=== PATIENT | male | born 1970 | race Native Hawaiian/Other Pacific Islander ===

== ENCOUNTER 2022-02-16 09:58 | Inpatient (IN) | payer OTHER ==
--- NOTE | 2022-02-16 10:06 | ED ---
General Adult HPI - General Stated complaint: Overdose Time Seen by Provider: 02/16/22 10:02 Source: patient, EMS, RN notes reviewed Mode of arrival: EMS Limitations: physical limitation (hard of hearing) - History of Present Illness Initial comments: Patient is a pleasant 22-year-old male presenting to the emergency Department with possible overdose. Patient was found unresponsive. When EMS arrived patient was arousable to painful stimuli only. Patient significantly improved with 2 of nasal Narcan. Patient started to become drowsy and improved again with 0.5 of IV Arkan. Patient admits to using marijuana and crack cocaine. Patient is very hard of hearing and somewhat a poor historian. Patient is unclear where he has and what happened. Patient has no complaints otherwise. - Related Data Allergies Allergy/AdvReac Type Severity Reaction Status Date / Time No Known Allergies Allergy Verified 02/16/22 10:07 Review of Systems ROS Statement: Those systems with pertinent positive or pertinent negative responses have been documented in the HPI. ROS Other: All systems not noted in ROS Statement are negative. Constitutional: Denies: fever Eyes: Denies: eye pain ENT: Denies: ear pain Respiratory: Denies: cough Cardiovascular: Denies: chest pain Endocrine: Denies: fatigue Gastrointestinal: Denies: abdominal pain Genitourinary: Denies: dysuria Musculoskeletal: Denies: back pain Skin: Denies: rash Neurological: Reports: as per HPI General Exam General appearance: alert, in no apparent distress Head exam: Present: atraumatic, normocephalic Eye exam: Present: normal appearance, PERRL, EOMI ENT exam: Present: normal oropharynx Neck exam: Present: normal inspection. Absent: tenderness, meningismus Respiratory exam: Present: normal lung sounds bilaterally Cardiovascular Exam: Present: regular rate, normal rhythm GI/Abdominal exam: Present: soft. Absent: tenderness Extremities exam: Present: normal inspection Neurological exam: Present: alert, CN II-XII intact. Absent: motor sensory deficit Expanded Patient oriented to: Present: person. Absent: place Psychiatric exam: Present: flat affect Skin exam: Present: normal color Course Vital Signs 02/16/22 02/16/22 02/16/22 10:08 10:14 10:53 Temperature 98 F Pulse Rate 107 H Respiratory 10 L 10 L 10 L Rate Blood Pressure 122/79 O2 Sat by Pulse 97 Oximetry EKG Findings - EKG Comments: EKG Findings:: Sinus tachycardia 110. NC 158. QRS 1:30. QT 355. QTC 420. Normal axis. Moderate intraventricular conduction delay. No acute ST change. Medical Decision Making - Medical Decision Making Patient reevaluated and resting comfortably in bed. Patient was getting drowsy again and improving with Narcan drip. Family also states no history of any heroin or opiate use. Case was discussed with practitioner John, who will admit covering hospital call. She does have mild bump with troponin. Cardiology consult and BNP will be ordered. Patient will be covered with a ntibiotics pending this with concern for questionable aspiration. - Lab Data Result diagrams: 02/16/22 10:07 02/16/22 10:07 Lab Results 02/16/22 02/16/22 02/16/22 Range/Units 10:07 10:07 10:07 WBC 15.5 H (3.8-10.6) k/uL RBC 5.21 (4.30-5.90) m/uL Hgb 17.0 (13.0-17.5) gm/dL Hct 52.0 (39.0-53.0) % MCV 99.8 (80.0-100.0) fL MCH 32.7 (25.0-35.0) pg MCHC 32.8 (31.0-37.0) g/dL RDW 13.3 (11.5-15.5) % Plt Count 260 (150-450) k/uL MPV 7.3 Neutrophils % 91 % Lymphocytes % 3 % Monocytes % 5 % Eosinophils % 0 % Basophils % 1 % Neutrophils # 14.1 H (1.3-7.7) k/uL Lymphocytes # 0.5 L (1.0-4.8) k/uL Monocytes # 0.8 (0-1.0) k/uL Eosinophils # 0.0 (0-0.7) k/uL Basophils # 0.2 (0-0.2) k/uL PT 10.5 (9.0-12.0) sec INR 1.0 (<1.2) APTT 25.6 (22.0-30.0) sec Sodium 142 (137-145) mmol/L Potassium 6.2 H* (3.5-5.1) mmol/L Chloride 104 (98-107) mmol/L Carbon Dioxide 21 L (22-30) mmol/L Anion Gap 17 mmol/L BUN 20 (9-20) mg/dL Creatinine 2.13 H (0.66-1.25) mg/dL Est GFR (CKD-EPI)AfAm 40 (>60 ml/min/1.73 sqM) Est GFR (CKD-EPI)NonAf 35 (>60 ml/min/1.73 sqM) Glucose 109 H (74-99) mg/dL Calcium 8.6 (8.4-10.2) mg/dL Total Bilirubin 0.4 (0.2-1.3) mg/dL AST 58 (17-59) U/L ALT 59 H (4-49) U/L Alkaline Phosphatase 98 (38-126) U/L Troponin I (0.000-0.034) ng/mL Total Protein 7.8 (6.3-8.2) g/dL Albumin 4.8 (3.5-5.0) g/dL Serum Alcohol <10 mg/dL 02/16/22 Range/Units 10:07 WBC (3.8-10.6) k/uL RBC (4.30-5.90) m/uL Hgb (13.0-17.5) gm/dL Hct (39.0-53.0) % MCV (80.0-100.0) fL MCH (25.0-35.0) pg MCHC (31.0-37.0) g/dL RDW (11.5-15.5) % Plt Count (150-450) k/uL MPV Neutrophils % % Lymphocytes % % Monocytes % % Eosinophils % % Basophils % % Neutrophils # (1.3-7.7) k/uL Lymphocytes # (1.0-4.8) k/uL Monocytes # (0-1.0) k/uL Eosinophils # (0-0.7) k/uL Basophils # (0-0.2) k/uL PT (9.0-12.0) sec INR (<1.2) APTT (22.0-30.0) sec Sodium (137-145) mmol/L Potassium (3.5-5.1) mmol/L Chloride (98-107) mmol/L Carbon Dioxide (22-30) mmol/L Anion Gap mmol/L BUN (9-20) mg/dL Creatinine (0.66-1.25) mg/dL Est GFR (CKD-EPI)AfAm (>60 ml/min/1.73 sqM) Est GFR (CKD-EPI)NonAf (>60 ml/min/1.73 sqM) Glucose (74-99) mg/dL Calcium (8.4-10.2) mg/dL Total Bilirubin (0.2-1.3) mg/dL AST (17-59) U/L ALT (4-49) U/L Alkaline Phosphatase (38-126) U/L Troponin I 0.191 H* (0.000-0.034) ng/mL Total Protein (6.3-8.2) g/dL Albumin (3.5-5.0) g/dL Serum Alcohol mg/dL - Radiology Data Radiology results: report reviewed (Head CT shows no acute), image reviewed (Chest x-ray does show some interstitial changes, possibly edema versus infiltrate) Critical Care Time Critical Care Time: Yes Total Critical Care Time: 32 Disposition Clinical Impression: Accidental drug overdose, Dyspnea, Hyperkalemia Disposition: ADMITTED IP TO THIS HOSP Condition: Serious Is patient prescribed a controlled substance at d/c from ED?: No Referrals: None,Stated [Primary Care Provider] - 1-2 days Time of Disposition: 11:38
[2022-02-16] MEDS ORDERED: NALOXONE 0.4 MG/ML 1 ML VIAL IVP STA (10:07)
[2022-02-16 10:35] LABS: Basophils # (A) 0.2 k/uL (0-0.2); Basophils % (A) 1 %; Eosinophils % (A) 0 %; Lymphocytes # (A) 0.5 k/uL (1.0-4.8); Lymphocytes % (A) 3 %; MCH 32.7 pg (25.0-35.0); MCHC 32.8 g/dL (31.0-37.0); MCV 99.8 fL (80.0-100.0); Mean Platelet Volume 7.3; Monocytes # (A) 0.8 k/uL (0-1.0); Monocytes % (A) 5 %; Neutrophils # (A) 14.1 k/uL (1.3-7.7); Neutrophils % (A) 91 %; Platelet Count 260 k/uL (150-450); RBC 5.21 m/uL (4.30-5.90); RDW 13.3 % (11.5-15.5); WBC 15.5 k/uL (3.8-10.6)
[2022-02-16 10:41] LABS: ALT 59 U/L (4-49); AST 58 U/L (17-59); African American GFR (CKD) 40 (>60 ml/min/1.73 sqM); Albumin 4.8 g/dL (3.5-5.0); Alcohol <10 mg/dL; Alkaline Phosphatase 98 U/L (38-126); Anion Gap 17 mmol/L; Blood Urea Nitrogen 20 mg/dL (9-20); Calcium 8.6 mg/dL (8.4-10.2); Carbon Dioxide 21 mmol/L (22-30); Chloride 104 mmol/L (98-107); Glucose 109 mg/dL (74-99); Non-African American GFR(CKD) 35 (>60 ml/min/1.73 sqM); Sodium 142 mmol/L (137-145); Total Bilirubin 0.4 mg/dL (0.2-1.3); Total Protein 7.8 g/dL (6.3-8.2)
[2022-02-16 10:46] LABS: Partial Thromboplastin Time 25.6 sec (22.0-30.0); Prothrombin Time 10.5 sec (9.0-12.0)
[2022-02-16] MEDS: NALOXONE (MDV) 2 MG in SODIUM CHLORIDE 0.9% 250 ML IV SCH ×3 (10:53→18:43)
[2022-02-16 11:03] LABS: Potassium 6.2 mmol/L (3.5-5.1)
[2022-02-16] MEDS ORDERED: SODIUM CHLORIDE 0.9% 1,000 ML IV STA (11:19)
[2022-02-16] MEDS ORDERED: SODIUM CHLORIDE 0.9% 500 ML 500 ML IV STA (11:19)
[2022-02-16] MEDS ORDERED: SODIUM BICARB 8.4% 50 ML SYR (1 MEQ/ML) IV ONE (11:20)
[2022-02-16] MEDS ORDERED: CALCIUM GLUCONATE IN NACL 1 GM in SALINE 1 100ML.BAG IVPB ONE (11:20)
--- NOTE | 2022-02-16 11:24 | XR ---
EXAMINATION TYPE: XR chest 2V DATE OF EXAM: 02/16/2022 COMPARISON: NONE HISTORY: Unresponsive after drug overdose. TECHNIQUE: Frontal and lateral views of the chest are obtained. FINDINGS: There are increased opacities bilaterally greater throughout the left lung. No pleural ef fusion or pneumothorax is seen bilaterally. The cardiac silhouette size is upper limits of normal. So mewhat low lung volumes. The osseous structures are intact. IMPRESSION: Left greater than right multifocal edema and/or infiltrates.
--- NOTE | 2022-02-16 11:25 | CT ---
EXAMINATION TYPE: CT brain wo con DATE OF EXAM: 02/16/2022 HISTORY: Altered mental status CT DLP: 1099.4 mGycm. Automated Exposure Control for Dose Reduction was Utilized. TECHNIQUE: CT scan of the head is performed without contrast. COMPARISON: None. FINDINGS: There is no acute intracranial hemorrhage or midline shift identified. Ventricles and sul ci within normal limits in size. Campos-white matter differentiation is maintained. The globes are int act and the visualized sinuses are clear. IMPRESSION: No acute intracranial hemorrhage or midline shift.
[2022-02-16] MEDS ORDERED: IPRATROPIUM-ALBUTEROL 3 ML NEB INHALATION PRN (11:40)
[2022-02-16] MEDS ORDERED: NALOXONE 0.4 MG/ML 1 ML VIAL IV PRN (11:40)
[2022-02-16] MEDS ORDERED: ASPIRIN 81 MG PO STA (11:44)
[2022-02-16] MEDS: PIPERACILLIN-TAZOBACTAM 3.375 GM in SODIUM CHLORIDE 0.9% 100 ML IVPB SCH ×2 (12:47→20:21)
--- NOTE | 2022-02-16 13:16 | P.CNPUL ---
History of Present Illness Consult date: 02/16/22 Requesting physician: Varghese Jacome Reason for consult: dyspnea, hypoxemia, pneumonia, abnormal CXR/CT, other Chief complaint: Suspected aspiration, overdose History of present illness: 52-year-old male with previous history of drug abuse including cocaine, crack, had a relapse, and was found unresponsive at her friend's house this morning. Patient's sister at the bedside also stated that CPR was also performed, but it is unknown for how long, and the details. When the EMS arrived patient was given Narcan with good response, and patient Required 3 doses. He was brought into the emergency department and started on Narcan drip is 0.6 milligram per hour. Patient is currently on a nonrebreather mask, satting 94%. He had been vomiting. Chest x-ray showing increased opacities bilaterally greater throughout the left lung, there is suspicion for aspiration related pneumonia or pulmonary edema. Brain CT showed no acute intracranial hemorrhage. Lab work showed elevated white count of 15.5, hemoglobin of 17, potassium of 6.2, BUN of 20 creatinine 2.13, troponin of 0.191, proBNP of 236, serum alcohol was less than 10. Patient is awake and alert, he is hard of hearing, but he is oriented 3, answering questions appropriately. He admits to doing cocaine and crack last night for the first time in the last 5 months, he states he has been quite stressed at work, he works at a [employer] in [place], [place]. In addition he also smokes cigarettes and marijuana on a regular basis. He remains on Narcan infusion, he is awaiting a bed in the ICU Review of Systems All systems: negative Constitutional: Denies chills, Denies fever Eyes: denies blurred vision, denies pain Ears, nose, mouth and throat: Denies headache, Denies sore throat Cardiovascular: Denies chest pain, Denies shortness of breath Respiratory: Reports dyspnea, Denies cough Gastrointestinal: Denies abdominal pain, Denies diarrhea, Denies nausea, Denies vomiting Musculoskeletal: Denies myalgias Integumentary: Denies pruritus, Denies rash Neurological: Reports change in mentation, Denies numbness, Denies weakness Psychiatric: Denies anxiety, Denies depression Endocrine: Denies fatigue, Denies weight change Past Medical History Past Medical History: Unable to Obtain History of Any Multi-Drug Resistant Organisms: Unobtainable Past Surgical History: Unable to Obtain Past Psychological History: No Psychological Hx Reported Past Drug Use History: Marijuana Medications and Allergies Home Medications Medication Instructions Recorded Confirmed Type No Known Home Medications 02/16/22 02/16/22 History Allergies Allergy/AdvReac Type Severity Reaction Status Date / Time No Known Allergies Allergy Verified 02/16/22 12:13 Physical Exam Vitals: Vital Signs Temp Pulse Resp BP Pulse Ox 02/16/22 12:40 96 23 124/90 94 L 02/16/22 12:30 96 26 H 92 L 02/16/22 12:20 94 26 H 89 L 02/16/22 12:10 93 16 90 L 02/16/22 12:00 94 19 90 L 02/16/22 11:59 93 19 88 L 02/16/22 10:53 10 L 02/16/22 10:14 10 L 02/16/22 10:08 98 F 107 H 10 L 122/79 97 Intake and Output 02/15/22 02/16/22 02/16/22 22:59 06:59 14:59 Other: Weight 81.647 kg GENERAL EXAM: Alert, very pleasant, 52-year-old male, on nonrebreather mask, oriented 3, comfortable in no apparent distress. HEAD: Normocephalic/atraumatic. EYES: Normal reaction of pupils, equal size. Conjunctiva pink, sclera white. NOSE: Clear with pink turbinates. THROAT: No erythema or exudates. NECK: No masses, no JVD, no thyroid enlargement, no adenopathy. CHEST: No chest wall deformity. Symmetrical expansion. LUNGS: Equal air entry with diffuse crackles CVS: Regular rate and rhythm, normal S1 and S2, no gallops, no murmurs, no rubs ABDOMEN: Soft, nontender. No hepatosplenomegaly, normal bowel sounds, no guarding or rigidity. EXTREMITIES: No clubbing, no edema, no cyanosis, 2+ pulses and upper and lower extremities. MUSCULOSKELETAL: Muscle strength and tone normal. SPINE: No scoliosis or deformity SKIN: No rashes CENTRAL NERVOUS SYSTEM: Alert and oriented -3. No focal deficits, tone is normal in all 4 extremities. PSYCHIATRIC: Alert and oriented -3. Appropriate affect. Intact judgment and insight. Results - Laboratory Findings CBC and BMP: 02/16/22 10:07 02/16/22 10:07 PT/INR, D-dimer PT 10.5 sec (9.0-12.0) 02/16/22 10:07 INR 1.0 (<1.2) 02/16/22 10:07 Abnormal lab findings: Abnormal Labs 02/16/22 02/16/22 02/16/22 10:07 10:07 10:07 WBC 15.5 H Neutrophils # 14.1 H Lymphocytes # 0.5 L Potassium 6.2 H* Carbon Dioxide 21 L Creatinine 2.13 H Glucose 109 H ALT 59 H Troponin I 0.191 H* - Diagnostic Findings Chest x-ray: report reviewed, image reviewed Additional studies: CT of the brain review, EKG reviewed Assessment and Plan Plan: Assessment: #1. Acute hypoxic respiratory failure related to a suspected aspiration. There may be a component of pulmonary edema #2. Drug overdose, patient admits to taking cocaine and crack, responded to Narcan, currently remains on Narcan infusion #3. Acute kidney injury #4. Acute hyperkalemia related to acute kidney injury, serum potassium of 6.2, treated with calcium gluconate, sodium bicarb, repeat BMP is pending #5. Troponin leak, rule out possibility of non-ST elevated AK #6. History of drug abuse including cocaine, crack, marijuana #7. Tobacco dependence Plan: Continue Narcan infusion Continue antibiotics Echocardiogram suggesting possibility of decreased LV function, final report is pending We will decrease the IV fluids to 75 ML per hour Serum potassium follow-up pending Maintain aspiration precautions GI and DVT prophylaxis Drug screen, pro-calcitonin, and serial troponins are pending We'll follow patient's clinical course in the ICU I have personally seen and examined the patient, performed the documentation and the assessment and plan as written. Number of minutes spent on the visit: [15] Time with Patient: Greater than 30
[2022-02-16 13:25] LABS: Amorphous Sediment,Urine Few /hpf; Appearance,Urine Cloudy (Clear); Bilirubin,Urine Negative (Negative); Blood,Urine Small (Negative); Color,Urine Yellow; Glucose,Urine (UA) 1+ (Negative); Hyaline Casts,Urine 25 /lpf (0-2); Ketones,Urine Negative (Negative); Leukocyte Esterase,Urine Negative (Negative); Mucus,Urine Few /hpf; Nitrite,Urine Negative (Negative); Protein,Urine 1+ (Negative); RBC,Urine 1 /hpf (0-5); Specific Gravity,Urine 1.012 (1.001-1.035); Squamous Epithelial Cell,Urine 2 /hpf (0-4); Urobilinogen,Urine <2.0 mg/dL (<2.0); WBC,Urine 7 /hpf (0-5)
[2022-02-16 13:28] LABS: Amphetamine Screen,Urine Not Detected (NotDetected); Barbiturate Screen,Urine Not Detected (NotDetected); Benzodiazepines Screen,Urine Not Detected (NotDetected); Cocaine Screen,Urine Detected (NotDetected); Methadone Screen, Urine Not Detected (NotDetected); Opiate Screen,Urine Not Detected (NotDetected); Oxycodone Screen, Urine Not Detected (NotDetected); Phencyclidine Screen,Urine Not Detected (NotDetected); Tricyclic Antidepressant,Urine Not Detected (NotDetected); Urn Cannabinoid Scrn Detected (NotDetected)
[2022-02-16 13:51] LABS: Glucose,Whole Blood 101 mg/dL (70-110)
[2022-02-16] MEDS ORDERED: HEPARIN SODIUM 1,000 UN/ML (10ML VL) IV ONE (15:13)
[2022-02-16] MEDS ORDERED: HEPARIN SODIUM 1,000 UN/ML (10ML VL) IV PRN (15:13)
--- NOTE | 2022-02-16 16:03 | P.HPIM ---
History of Present Illness H&P Date: 02/16/22 Chief Complaint: unresponsiveness 52-year-old male with previous history of drug abuse including cocaine, but otherwise no past medical history, doesn't usually go to doctors. He presented to the ER after he was found unresponsive at a friend's house this morning. Patient's sister at the bedside also stated that CPR was also performed, but it is unknown for how long, and the details. When the EMS arrived patient was given Narcan with good response, and patient Required 3 doses. He was brought into the emergency department and started on Narcan drip. Patient is currently awake and answering questions appropriately but having problems with his hearing which is new according to sister. He told me that the last time he used cocaine was 5 months ago and that he doesn't use it regularly. He threw up multiple times in the ER. Work up in the ER with chest x-ray showed increased opacities bilaterally greater throughout the left lung, there is suspicion for aspiration related pneumonia or pulmonary edema. Brain CT showed no acute intracranial hemorrhage. Lab work showed elevated white count of 15.5, hemoglobin of 17, potassium of 6.2, BUN of 20 creatinine 2.13, troponin of 0.191, repeat 0.312, proBNP of 236, serum alcohol was less than 10. Urine drug screen positive for cocaine and marijuana. He is currently on narcan gtt will be admitted to ICU. Review of Systems Complete review of system performed, pertinent positives per HPI, otherwise negative Past Medical History Past Medical History: Unable to Obtain History of Any Multi-Drug Resistant Organisms: Unobtainable Past Surgical History: Unable to Obtain Past Psychological History: No Psychological Hx Reported Past Drug Use History: Marijuana Medications and Allergies Home Medications Medication Instructions Recorded Confirmed Type No Known Home Medications 02/16/22 02/16/22 History Allergies Allergy/AdvReac Type Severity Reaction Status Date / Time No Known Allergies Allergy Verified 02/16/22 12:13 Physical Exam Vitals: Vital Signs Temp Pulse Resp BP Pulse Ox 02/16/22 13:50 109/82 02/16/22 13:40 109/82 02/16/22 13:30 98 12 107/81 92 L 02/16/22 13:20 90 14 107/81 91 L 02/16/22 13:10 21 107/81 90 L 02/16/22 13:00 89 14 124/90 91 L 02/16/22 12:50 97 25 H 124/90 90 L 02/16/22 12:40 96 23 124/90 94 L 02/16/22 12:30 96 26 H 92 L 02/16/22 12:20 94 26 H 89 L 02/16/22 12:10 93 16 90 L 02/16/22 12:00 94 19 90 L 02/16/22 11:59 93 19 88 L 02/16/22 10:53 10 L 02/16/22 10:14 10 L 02/16/22 10:08 98 F 107 H 10 L 122/79 97 Intake and Output 02/16/22 02/16/22 02/16/22 06:59 14:59 22:59 Intake Total 237 Output Total 0 Balance 237 Intake: Oral 237 Output: Urine 0 Other: Voiding Method Urinal Weight 81.647 kg Constitutional: No acute distress, conversant, pleasant Eyes:Anicteric sclerae, moist conjunctiva, no lid-lag, PERRLA, ENMT: Oropharynx clear, no erythema, exudates Neck: Supple, FROM, no masses, or JVD, No carotid bruits, No thyromegaly Lungs: Clear to auscultation, Clear to percussion, Normal respiratory effort, no accessory muscle use Cardiovascular: Heart regular in rate and rhythm, No murmurs, gallops, or rubs, No peripheral edema Abdominal: Soft, Nontender, no guarding, rebound or rigidity, Normoactive bowel sounds, No hepatomegaly, No splenomegaly, No palpable mass Skin: Normal temperature, tone, texture, turgor, no induration, No subcutaneous nodules, No rash, lesions, No ulcers Extremities: No digital cyanosis, No clubbing, Pedal pulses intact and symmetrical, Radial pulses intact and symmetrical, No calf tenderness Psychiatric: Alert and oriented to person, place and time, appropriate affect, intact judgement Neuro: Muscles Strength 5/5 in all 4 extremities, Sensation to light touch grossly present throughout, Cranial nerves II-XII grossly intact, no focal sensory deficits Results CBC & Chem 7: 02/16/22 10:07 02/16/22 10:07 Labs: Abnormal Lab Results - Last 24 Hours (Table) 02/16/22 02/16/22 02/16/22 Range/Units 10:07 10:07 10:07 WBC 15.5 H (3.8-10.6) k/uL Neutrophils # 14.1 H (1.3-7.7) k/uL Lymphocytes # 0.5 L (1.0-4.8) k/uL Potassium 6.2 H* (3.5-5.1) mmol/L Carbon Dioxide 21 L (22-30) mmol/L Creatinine 2.13 H (0.66-1.25) mg/dL Glucose 109 H (74-99) mg/dL ALT 59 H (4-49) U/L Troponin I 0.191 H* (0.000-0.034) ng/mL Urine Protein (Negative) Urine Glucose (UA) (Negative) Urine Blood (Negative) Urine WBC (0-5) /hpf Amorphous Sediment (None) /hpf Hyaline Casts (0-2) /lpf Urine Mucus (None) /hpf Urine Cocaine Screen (NotDetected) U Marijuana (THC) Screen (NotDetected) 02/16/22 02/16/22 Range/Units 12:30 13:24 WBC (3.8-10.6) k/uL Neutrophils # (1.3-7.7) k/uL Lymphocytes # (1.0-4.8) k/uL Potassium (3.5-5.1) mmol/L Carbon Dioxide (22-30) mmol/L Creatinine (0.66-1.25) mg/dL Glucose (74-99) mg/dL ALT (4-49) U/L Troponin I 0.312 H* (0.000-0.034) ng/mL Urine Protein 1+ H (Negative) Urine Glucose (UA) 1+ H (Negative) Urine Blood Small H (Negative) Urine WBC 7 H (0-5) /hpf Amorphous Sediment Few H (None) /hpf Hyaline Casts 25 H (0-2) /lpf Urine Mucus Few H (None) /hpf Urine Cocaine Screen Detected H (NotDetected) U Marijuana (THC) Screen Detected H (NotDetected) Assessment and Plan Plan: Unresponsiveness Toxic encephalopathy Cocaine abuse Admit to ICU Consult punching machine operator IV fluids Advised to quit Aspiration pneumonia Zosyn Aspiration precautions Elevated troponin Rule out non-ST elevation OK Cardiac consulted Heparin drip initiated Acute kidney injury with hyperkalemia He was given bicarb and calcium gluconate IV fluids Recheck BMP Avoid nephrotoxic meds DVT prophylaxis Already on heparin Admit to inpatient, expected length of stay more than 2 midnights
[2022-02-16 16:08] LABS: Partial Thromboplastin Time 24.8 sec (22.0-30.0); Prothrombin Time 10.9 sec (9.0-12.0)
[2022-02-16 16:13] LABS: Calcium 8.2 mg/dL (8.4-10.2); Potassium 4.6 mmol/L (3.5-5.1)
[2022-02-16 16:20] LABS: HCT 47.4 % (39.0-53.0); HGB 16.2 gm/dL (13.0-17.5); MCH 33.5 pg (25.0-35.0); MCHC 34.1 g/dL (31.0-37.0); MCV 98.4 fL (80.0-100.0); Mean Platelet Volume 7.4; Platelet Count 209 k/uL (150-450); RBC 4.82 m/uL (4.30-5.90); RDW 13.5 % (11.5-15.5); WBC 4.6 k/uL (3.8-10.6)
[2022-02-16 16:53] LABS: Band Neutrophils % 13 %; Lymphocytes # (M) 0.87 k/uL (1.0-4.8); Monocytes # (M) 0.23 k/uL (0-1.0); Neutrophils % (M) 63 %; Nucleated Red Blood Cells 0 /100 WBC (0-0); Total Cells Counted 100; Toxic Vacuolation Present
[2022-02-16] MEDS: HEPARIN SOD,PORK IN 0.45% NACL 25,000 UNIT in 0.45% NACL 1 250ML.BAG IV SCH (17:18)
[2022-02-16] MEDS: IPRATROPIUM-ALBUTEROL 3 ML NEB INHALATION SCH (20:42)
[2022-02-17] MEDS: MAG HYDROX/AL HYDROX/SIMETH 30 ML CUP PO PRN ×3 (00:29→12:56)
[2022-02-17 06:22] LABS: INR 1.1 (<1.2); Partial Thromboplastin Time 47.5 sec (22.0-30.0); Prothrombin Time 11.8 sec (9.0-12.0)
--- NOTE | 2022-02-17 06:32 | XR ---
EXAMINATION TYPE: XR chest 1V portable DATE OF EXAM: 02/17/2022 CLINICAL HISTORY: Shortness of breath progress study. TECHNIQUE: Single AP portable semiupright view of the chest is obtained. COMPARISON: Chest x-ray from one day earlier FINDINGS: There is some improved aeration with persistent central lung opacities. No pleural effusi on or pneumothorax is seen bilaterally. The cardiac silhouette size is stable and upper limits of nor mal. Somewhat low lung volumes redemonstrated. The osseous structures are intact. IMPRESSION: Improving but persistent central bilateral edema and/or infiltrates.
[2022-02-17 06:49] LABS: ALT 48 U/L (4-49); AST 74 U/L (17-59); African American GFR (CKD) >90 (>60 ml/min/1.73 sqM); Albumin 3.4 g/dL (3.5-5.0); Alkaline Phosphatase 74 U/L (38-126); Anion Gap 6 mmol/L; Blood Urea Nitrogen 16 mg/dL (9-20); Carbon Dioxide 24 mmol/L (22-30); Chloride 107 mmol/L (98-107); Glucose 123 mg/dL (74-99); Magnesium 1.9 mg/dL (1.6-2.3); Non-African American GFR(CKD) >90 (>60 ml/min/1.73 sqM); Potassium 4.3 mmol/L (3.5-5.1); Sodium 137 mmol/L (137-145); Total Bilirubin 0.8 mg/dL (0.2-1.3); Total Protein 6.1 g/dL (6.3-8.2)
[2022-02-17] MEDS: PIPERACILLIN-TAZOBACTAM 3.375 GM in SODIUM CHLORIDE 0.9% 100 ML IVPB SCH ×3 (06:52→20:15)
[2022-02-17 06:54] LABS: Basophils % (A) 0 %; Eosinophils % (A) 0 %; HCT 40.7 % (39.0-53.0); Lymphocytes # (A) 1.6 k/uL (1.0-4.8); Lymphocytes % (A) 14 %; MCH 33.6 pg (25.0-35.0); MCHC 34.5 g/dL (31.0-37.0); MCV 97.4 fL (80.0-100.0); Mean Platelet Volume 7.5; Monocytes # (A) 0.3 k/uL (0-1.0); Monocytes % (A) 3 %; Neutrophils # (A) 9.2 k/uL (1.3-7.7); Neutrophils % (A) 82 %; Platelet Count 176 k/uL (150-450); RBC 4.17 m/uL (4.30-5.90); RDW 13.7 % (11.5-15.5); WBC 11.2 k/uL (3.8-10.6)
[2022-02-17] MEDS: IPRATROPIUM-ALBUTEROL 3 ML NEB INHALATION SCH ×4 (07:39→20:22)
[2022-02-17] MEDS ORDERED: Magnesium Replacement Protocol 1 EACH MISC MISCELLANE PRN (08:00)
[2022-02-17] MEDS: ASPIRIN 81 MG PO SCH (08:20)
[2022-02-17] MEDS ORDERED: PANTOPRAZOLE 40 MG/10 ML VIAL IV SCH (09:00)
[2022-02-17] MEDS: MAGNESIUM SULFATE-D5W PMX 1 GM in DEXTROSE/WATER 1 100ML.BAG IVPB SCH ×2 (09:01→10:10)
--- NOTE | 2022-02-17 09:07 | CA ---
Transthoracic Echo Report Name: José Antonio Farah Age: 52 Gender: M : 1970 Exam Date: 02/16/2022 12:06 Exam Location: [facility] Ht (in): 67 Wt (lb): 180 Ordering Physician: Fermin Lynn MD Attending/Referring Phys: [facility] Geena Aranda RDCS Procedure CPT: Indications: pulm edema Cardiac Hx: Overdose Technical Quality: Good Contrast 1: Total Dose (mL): Contrast 2: Total Dose (mL): MEASUREMENTS (Male / Female) Normal Values 2D ECHO LV Diastolic Diameter PLAX 5.3 cm 4.2 - 5.9 / 3.9 - 5.3 cm LV Systolic Diameter PLAX 4.3 cm IVS Diastolic Thickness 1.1 cm 0.6 - 1.0 / 0.6 - 0.9 cm LVPW Diastolic Thickness 1.1 cm 0.6 - 1.0 / 0.6 - 0.9 cm LV Relative Wall Thickness 0.4 LV Diastolic Volume MOD 4C 86.3 cm??? LV Systolic Volume MOD 4C 75.6 cm??? LV Ejection Fraction MOD 4C 12.4 % LV Diastolic Length 4C 8.6 cm LV Systolic Length 4C 8.1 cm LA Volume 36.4 cm??? 18 - 58 / 22 - 52 cm??? M-MODE Aortic Root Diameter MM 3.8 cm LA Systolic Diameter MM 3.3 cm LA Ao Ratio MM 0.9 MV E Point Septal Separation 3.0 cm AV Cusp Separation MM 2.2 cm DOPPLER AV Peak Velocity 113.4 cm/s AV Peak Gradient 5.1 mmHg MV Area PHT 4.0 cm??? MR Peak Velocity 393.6 cm/s MR Peak Gradient 62.0 mmHg Mitral E Point Velocity 62.1 cm/s Mitral A Point Velocity 78.8 cm/s Mitral E to A Ratio 0.8 MV Deceleration Time 190.9 ms MV E' Velocity 6.1 cm/s Mitral E to MV E' Ratio 10.3 TR Peak Velocity 165.5 cm/s TR Peak Gradient 11.0 mmHg Right Ventricular Systolic Press 14.9 mmHg FINDINGS Left Ventricle Left ventricular ejection fraction is estimated at 40-45 %. Left ventricular cavity size normal. Left ventricular wall thickness normal. Right Ventricle Mild right ventricular dilatation. Right ventricular systolic pressure within normal limits. Right Atrium The right atrium is normal in size. Left Atrium The left atrium is normal in size. Mitral Valve Structurally normal mitral valve without significant stenosis or prolapse. There is trace mitral regurgitation. Aortic Valve Structurally normal aortic valve without significant sclerosis or stenosis. There is no aortic regurgitation. Tricuspid Valve Structurally normal tricuspid valve without significant stenosis. Pulmonary artery systolic pressure is normal. Trace tricuspid regurgitation. Pulmonic Valve Structurally normal pulmonic valve without significant stenosis. There is no pulmonic regurgitation. Pericardium Normal pericardium without effusion. Aorta Normal aortic root dimension. CONCLUSIONS Left ventricular ejection fraction 40-45% with global hypokinesis Trace mitral regurgitation Normal RVSP No pericardial effusion Previewed by: Dr. Agusto Kang DO (Electronically Signed) Final Date: 17 February 2022 09:06
--- NOTE | 2022-02-17 11:28 | P.PN ---
Subjective Progress Note Date: 02/17/22 Principal diagnosis: cocoaine abuse Pateint feeling ok this morning. States he was having a heart burn which he chronically has. No fevers or chills. No chest pain or sob. He is off narcan gtt. O2 was titrated down to 8L HFNC. Objective - Vital Signs Vital signs: Vital Signs Temp 98.5 F 02/17/22 08:00 Pulse 86 02/17/22 11:00 Resp 14 02/17/22 11:00 BP 128/90 02/17/22 11:00 Pulse Ox 93 L 02/17/22 11:00 FiO2 Intake & Output 02/16/22 02/17/22 02/17/22 18:59 06:59 18:59 Intake Total 1499.5 1210 370 Output Total 750 1525 600 Balance 749.5 -315 -230 Weight 97.1 kg 97.3 kg Intake: IV 300 850 170 0.9 NS 650 170 Naloxone (Mdv) 2 mg In 225 Sodium Chloride 0.9% 250 ml @ 0.6 MG/HR 75 mls/hr IV .Q3H20M [facility] Rx#: [id number] Piperacillin-Tazobactam 3 200 .375 gm In Sodium Chloride 0.9% 100 ml @ 25 mls/hr IVPB Q8H [facility] Rx#: [id number] Sodium Chloride 0.9% 1, 75 000 ml @ 130 mls/hr IV . Q7H42M [facility] Rx#:[id number] Intake, IV Titration 462.5 200 Amount Magnesium Sulfate-D5w Pmx 200 1 gm In Dextrose/Water 1 100ml.bag @ 100 mls/hr IVPB Q1H [facility] Rx#: [id number] Naloxone (Mdv) 2 mg In 462.5 Sodium Chloride 0.9% 250 ml @ 0.6 MG/HR 75 mls/hr IV .Q3H20M [facility] Rx#: [id number] Oral 737 360 Output: Urine 750 1525 600 Other: Voiding Method Urinal Urinal Urinal # Voids 3 - Exam Constitutional: No acute distress, conversant, pleasant Eyes:Anicteric sclerae, moist conjunctiva, no lid-lag, PERRLA, ENMT: Oropharynx clear, no erythema, exudates Neck: Supple, FROM, no masses, or JVD, No carotid bruits, No thyromegaly Lungs: Clear to auscultation, Clear to percussion, Normal respiratory effort, no accessory muscle use Cardiovascular: Heart regular in rate and rhythm, No murmurs, gallops, or rubs, No peripheral edema Abdominal: Soft, Nontender, no guarding, rebound or rigidity, Normoactive bowel sounds, No hepatomegaly, No splenomegaly, No palpable mass Skin: Normal temperature, tone, texture, turgor, no induration, No subcutaneous nodules, No rash, lesions, No ulcers Extremities: No digital cyanosis, No clubbing, Pedal pulses intact and symmetrical, Radial pulses intact and symmetrical, No calf tenderness Psychiatric: Alert and oriented to person, place and time, appropriate affect, intact judgement Neuro: Muscles Strength 5/5 in all 4 extremities, Sensation to light touch grossly present throughout, Cranial nerves II-XII grossly intact, no focal sensory deficits - Labs CBC & Chem 7: 02/17/22 05:56 02/17/22 05:56 Labs: Abnormal Lab Results - Last 24 Hours (Table) 02/16/22 02/16/22 02/16/22 Range/Units 10:07 12:30 13:24 WBC (3.8-10.6) k/uL RBC (4.30-5.90) m/uL Neutrophils # (1.3-7.7) k/uL Lymphocytes # (Manual) (1.0-4.8) k/uL APTT (22.0-30.0) sec Carbon Dioxide (22-30) mmol/L Glucose (74-99) mg/dL Calcium (8.4-10.2) mg/dL AST (17-59) U/L Troponin I 0.312 H* (0.000-0.034) ng/mL Total Protein (6.3-8.2) g/dL Albumin (3.5-5.0) g/dL Procalcitonin 8.13 H (0.02-0.09) ng/mL Urine Protein 1+ H (Negative) Urine Glucose (UA) 1+ H (Negative) Urine Blood Small H (Negative) Urine WBC 7 H (0-5) /hpf Amorphous Sediment Few H (None) /hpf Hyaline Casts 25 H (0-2) /lpf Urine Mucus Few H (None) /hpf Urine Cocaine Screen Detected H (NotDetected) U Marijuana (THC) Screen Detected H (NotDetected) 02/16/22 02/16/22 02/16/22 Range/Units 15:45 15:45 15:45 WBC (3.8-10.6) k/uL RBC (4.30-5.90) m/uL Neutrophils # (1.3-7.7) k/uL Lymphocytes # (Manual) 0.87 L (1.0-4.8) k/uL APTT (22.0-30.0) sec Carbon Dioxide 21 L (22-30) mmol/L Glucose 110 H (74-99) mg/dL Calcium 8.2 L (8.4-10.2) mg/dL AST (17-59) U/L Troponin I 0.446 H* (0.000-0.034) ng/mL Total Protein (6.3-8.2) g/dL Albumin (3.5-5.0) g/dL Procalcitonin (0.02-0.09) ng/mL Urine Protein (Negative) Urine Glucose (UA) (Negative) Urine Blood (Negative) Urine WBC (0-5) /hpf Amorphous Sediment (None) /hpf Hyaline Casts (0-2) /lpf Urine Mucus (None) /hpf Urine Cocaine Screen (NotDetected) U Marijuana (THC) Screen (NotDetected) 02/16/22 02/16/22 02/16/22 Range/Units 21:34 21:34 23:14 WBC (3.8-10.6) k/uL RBC (4.30-5.90) m/uL Neutrophils # (1.3-7.7) k/uL Lymphocytes # (Manual) (1.0-4.8) k/uL APTT 60.3 H (22.0-30.0) sec Carbon Dioxide (22-30) mmol/L Glucose (74-99) mg/dL Calcium (8.4-10.2) mg/dL AST (17-59) U/L Troponin I 0.454 H* 0.469 H* (0.000-0.034) ng/mL Total Protein (6.3-8.2) g/dL Albumin (3.5-5.0) g/dL Procalcitonin (0.02-0.09) ng/mL Urine Protein (Negative) Urine Glucose (UA) (Negative) Urine Blood (Negative) Urine WBC (0-5) /hpf Amorphous Sediment (None) /hpf Hyaline Casts (0-2) /lpf Urine Mucus (None) /hpf Urine Cocaine Screen (NotDetected) U Marijuana (THC) Screen (NotDetected) 02/17/22 02/17/22 02/17/22 Range/Units 05:56 05:56 05:56 WBC 11.2 H (3.8-10.6) k/uL RBC 4.17 L (4.30-5.90) m/uL Neutrophils # 9.2 H (1.3-7.7) k/uL Lymphocytes # (Manual) (1.0-4.8) k/uL APTT 47.5 H (22.0-30.0) sec Carbon Dioxide (22-30) mmol/L Glucose 123 H (74-99) mg/dL Calcium 8.0 L (8.4-10.2) mg/dL AST 74 H (17-59) U/L Troponin I (0.000-0.034) ng/mL Total Protein 6.1 L (6.3-8.2) g/dL Albumin 3.4 L (3.5-5.0) g/dL Procalcitonin (0.02-0.09) ng/mL Urine Protein (Negative) Urine Glucose (UA) (Negative) Urine Blood (Negative) Urine WBC (0-5) /hpf Amorphous Sediment (None) /hpf Hyaline Casts (0-2) /lpf Urine Mucus (None) /hpf Urine Cocaine Screen (NotDetected) U Marijuana (THC) Screen (NotDetected) Assessment and Plan Plan: Unresponsiveness Toxic encephalopathy Cocaine abuse Titrate O2 down as tolerated. Advised to quit Aspiration pneumonia with cxr showing central bilateral edema vs. infiltrates Zosyn Bronchodilators. Aspiration precautions Elevated troponin likely non-ST elevation [place] Cardiac following Heparin drip initiated Acute kidney injury with hyperkalemia He was given bicarb and calcium gluconate Resolved Avoid nephrotoxic meds DVT prophylaxis Already on heparin
--- NOTE | 2022-02-17 12:44 | P.PN ---
Subjective Progress Note Date: 02/17/22 Principal diagnosis: Acute hypoxic respiratory failure secondary to aspiration pneumonia and cocaine as well as marijuana over dose 52-year-old male with previous history of drug abuse including cocaine, crack, had a relapse, and was found unresponsive at her friend's house this morning. Patient's sister at the bedside also stated that CPR was also performed, but it is unknown for how long, and the details. When the EMS arrived patient was given Narcan with good response, and patient Required 3 doses. He was brought into the emergency department and started on Narcan drip is 0.6 milligram per hour. Patient is currently on a nonrebreather mask, satting 94%. He had been vomiting. Chest x-ray showing increased opacities bilaterally greater throughout the left lung, there is suspicion for aspiration related pneumonia or pulmonary edema. Brain CT showed no acute intracranial hemorrhage. Lab work showed elevated white count of 15.5, hemoglobin of 17, potassium of 6.2, BUN of 20 creatinine 2.13, troponin of 0.191, proBNP of 236, serum alcohol was less than 10. Patient is awake and alert, he is hard of hearing, but he is oriented 3, answering questions appropriately. He admits to doing cocaine and crack last night for the first time in the last 5 months, he states he has been quite stressed at work, he works at a [employer] in [place], [place]. In addition he also smokes cigarettes and marijuana on a regular basis. He remains on Narcan infusion, he is awaiting a bed in the ICU Patient was reevaluated today on 02/17/2022, I saw this patient yesterday in the ER, and admitted the patient to the ICU with cocaine overdose, aspiration pneumonia, possible non-ST elevation myocardial infarction, and the patient had to be placed initially on BiPAP, transitioned to high flow nasal cannula presently on 8 L high flow with O2 sats of 93%, patient was placed on Narcan drip which was discontinued last night. Patient is sitting in bed, very comfortable, does not seem to be in any distress. His chest x-ray is showing improvement in his bilateral infiltrates however not completely resolved. Patient is hemodynamically stable, he was seen by cardiology and he was placed on heparin for elevated troponin. And apparently had an episode of chest discomfort and diaphoresis last night. His echocardiogram showed ejection fraction of 40-45%. Cardiology consultation is pending. Patient was placed on antibiotics in the form of Zosyn empirically for aspiration pneumonia Objective - Vital Signs Vital signs: Vital Signs Temp 98.5 F 02/17/22 08:00 Pulse 74 02/17/22 11:38 Resp 14 02/17/22 11:00 BP 128/90 02/17/22 11:00 Pulse Ox 93 L 02/17/22 11:00 FiO2 Intake & Output 02/16/22 02/17/22 02/17/22 18:59 06:59 18:59 Intake Total 1499.5 1210 370 Output Total 750 1525 600 Balance 749.5 -315 -230 Weight 97.1 kg 97.3 kg Intake: IV 300 850 170 0.9 NS 650 170 Naloxone (Mdv) 2 mg In 225 Sodium Chloride 0.9% 250 ml @ 0.6 MG/HR 75 mls/hr IV .Q3H20M [facility] Rx#: [id number] Piperacillin-Tazobactam 3 200 .375 gm In Sodium Chloride 0.9% 100 ml @ 25 mls/hr IVPB Q8H [facility] Rx#: [id number] Sodium Chloride 0.9% 1, 75 000 ml @ 130 mls/hr IV . Q7H42M [facility] Rx#:[id number] Intake, IV Titration 462.5 200 Amount Magnesium Sulfate-D5w Pmx 200 1 gm In Dextrose/Water 1 100ml.bag @ 100 mls/hr IVPB Q1H [facility] Rx#: [id number] Naloxone (Mdv) 2 mg In 462.5 Sodium Chloride 0.9% 250 ml @ 0.6 MG/HR 75 mls/hr IV .Q3H20M [facility] Rx#: [id number] Oral 737 360 Output: Urine 750 1525 600 Other: Voiding Method Urinal Urinal Urinal # Voids 3 - Exam Physical Exam: Revealed a 52-year-old male in no distress. On 8 L high flow nasal cannula. Head: Atraumatic, normocephalic. HEENT:[Neck is supple.] [No neck masses.] [No thyromegaly.] [No JVD.] Chest: [Symmetrical chest expansion, minimal crackles at the bases no rhonchi and no wheezes.] Cardiac Exam: [Normal S1 and S2, no S3 gallop, no murmur.] Abdomen: [Soft, nontender, no megaly, no rebound, no guarding, normal bowel sounds.] Extremities: [No clubbing, no edema, no cyanosis.] Neurological Exam: [No focal neurologic deficit.] Alert oriented 3. Psychiatric: Normal mood affect and normal mental status examination. Skin: No rashes. - Labs CBC & Chem 7: 02/17/22 05:56 02/17/22 05:56 Labs: Abnormal Lab Results - Last 24 Hours (Table) 02/16/22 02/16/22 02/16/22 Range/Units 10:07 12:30 13:24 WBC (3.8-10.6) k/uL RBC (4.30-5.90) m/uL Neutrophils # (1.3-7.7) k/uL Lymphocytes # (Manual) (1.0-4.8) k/uL APTT (22.0-30.0) sec Carbon Dioxide (22-30) mmol/L Glucose (74-99) mg/dL Calcium (8.4-10.2) mg/dL AST (17-59) U/L Troponin I 0.312 H* (0.000-0.034) ng/mL Total Protein (6.3-8.2) g/dL Albumin (3.5-5.0) g/dL Procalcitonin 8.13 H (0.02-0.09) ng/mL Urine Protein 1+ H (Negative) Urine Glucose (UA) 1+ H (Negative) Urine Blood Small H (Negative) Urine WBC 7 H (0-5) /hpf Amorphous Sediment Few H (None) /hpf Hyaline Casts 25 H (0-2) /lpf Urine Mucus Few H (None) /hpf Urine Cocaine Screen Detected H (NotDetected) U Marijuana (THC) Screen Detected H (NotDetected) 02/16/22 02/16/22 02/16/22 Range/Units 15:45 15:45 15:45 WBC (3.8-10.6) k/uL RBC (4.30-5.90) m/uL Neutrophils # (1.3-7.7) k/uL Lymphocytes # (Manual) 0.87 L (1.0-4.8) k/uL APTT (22.0-30.0) sec Carbon Dioxide 21 L (22-30) mmol/L Glucose 110 H (74-99) mg/dL Calcium 8.2 L (8.4-10.2) mg/dL AST (17-59) U/L Troponin I 0.446 H* (0.000-0.034) ng/mL Total Protein (6.3-8.2) g/dL Albumin (3.5-5.0) g/dL Procalcitonin (0.02-0.09) ng/mL Urine Protein (Negative) Urine Glucose (UA) (Negative) Urine Blood (Negative) Urine WBC (0-5) /hpf Amorphous Sediment (None) /hpf Hyaline Casts (0-2) /lpf Urine Mucus (None) /hpf Urine Cocaine Screen (NotDetected) U Marijuana (THC) Screen (NotDetected) 02/16/22 02/16/22 02/16/22 Range/Units 21:34 21:34 23:14 WBC (3.8-10.6) k/uL RBC (4.30-5.90) m/uL Neutrophils # (1.3-7.7) k/uL Lymphocytes # (Manual) (1.0-4.8) k/uL APTT 60.3 H (22.0-30.0) sec Carbon Dioxide (22-30) mmol/L Glucose (74-99) mg/dL Calcium (8.4-10.2) mg/dL AST (17-59) U/L Troponin I 0.454 H* 0.469 H* (0.000-0.034) ng/mL Total Protein (6.3-8.2) g/dL Albumin (3.5-5.0) g/dL Procalcitonin (0.02-0.09) ng/mL Urine Protein (Negative) Urine Glucose (UA) (Negative) Urine Blood (Negative) Urine WBC (0-5) /hpf Amorphous Sediment (None) /hpf Hyaline Casts (0-2) /lpf Urine Mucus (None) /hpf Urine Cocaine Screen (NotDetected) U Marijuana (THC) Screen (NotDetected) 02/17/22 02/17/22 02/17/22 Range/Units 05:56 05:56 05:56 WBC 11.2 H (3.8-10.6) k/uL RBC 4.17 L (4.30-5.90) m/uL Neutrophils # 9.2 H (1.3-7.7) k/uL Lymphocytes # (Manual) (1.0-4.8) k/uL APTT 47.5 H (22.0-30.0) sec Carbon Dioxide (22-30) mmol/L Glucose 123 H (74-99) mg/dL Calcium 8.0 L (8.4-10.2) mg/dL AST 74 H (17-59) U/L Troponin I (0.000-0.034) ng/mL Total Protein 6.1 L (6.3-8.2) g/dL Albumin 3.4 L (3.5-5.0) g/dL Procalcitonin (0.02-0.09) ng/mL Urine Protein (Negative) Urine Glucose (UA) (Negative) Urine Blood (Negative) Urine WBC (0-5) /hpf Amorphous Sediment (None) /hpf Hyaline Casts (0-2) /lpf Urine Mucus (None) /hpf Urine Cocaine Screen (NotDetected) U Marijuana (THC) Screen (NotDetected) Assessment and Plan Assessment: Impression: Acute hypoxic respiratory failure secondary to aspiration pneumonia and secondary to drug overdose/cocaine Questionable cardiac arrest, it is not clear where the patient truly received CPR when he was found unresponsive Acute kidney injury Acute hyperkalemia secondary to acute kidney injury Non-ST elevation myocardial infarction History of drug abuse including cocaine, crack, marijuana Tobacco dependence syndrome. Recommendation: Continue to monitor the patient in the ICU for now. Patient is off Narcan since last night. Continue antibiotics/Zosyn Cardiology to evaluate regarding his elevated troponin Continue to monitor electrolytes and renal profile GI and DVT prophylaxis Drug screen was reviewed, patient had positive drug screen for cocaine and marijuana. We will continue to follow. Time with Patient: Less than 30
[2022-02-17] MEDS: ACETAMINOPHEN TAB 325 MG TAB PO PRN (17:14)
--- NOTE | 2022-02-17 17:20 | P.CRDCN ---
History of Present Illness History of present illness: HISTORY OF PRESENTING ILLNESS Patient is a pleasant 52-year-old male with history of tobacco abuse, alcohol use, rare cocaine/crack use, family history of coronary artery disease and has never followed with DrGage who presents secondary to altered mental status. Patient recalls drinking and having somewhat of a worse day and therefore had a relapse use crack cocaine. He denies having any issues however apparently was found by friends unresponsive and therefore started doing CPR and he had foam around his mouth. No documentation of any heart arrhythmia or defibrillation. He came to emergency department and was given Narcan and started on Narcan drip however no reports of any narcotics. He slowly came back to his normal self and currently feels at his baseline. He denies any chest pain or pressure. He does have chronic GERD heartburn sensation however no change. He states normally is fairly active and denies any dyspnea or chest pain typically. He was found to have acute kidney injury with creatinine up to 2.13 and potassium 6.2 as well as mildly elevated AST 58, ALT 59 and elevated white blood cell count 15.5. Pro- calcitonin was elevated at 8.1. Troponins 0.19, 0.31, 0.44, 0.45, 0.46. He received IV fluids and creatinine improved to 0.8 today. Echocardiogram pe rformed which shows decreased EF 40-45% and otherwise no significant valvular disease. REVIEW OF SYSTEMS At the time of my exam: CONSTITUTIONAL: Denies fever or chills. CARDIOVASCULAR: Denies chest pain, shortness of breath, orthopnea, PND or palpitations. RESPIRATORY: Denies cough. GASTROINTESTINAL: +Gerd type chronic abdominal pain, no diarrhea, constipation, nausea or vomiting. MUSCULOSKELETAL: Denies myalgias. NEUROLOGIC: Denies numbness, tingling or weakness. ENDOCRINE: Denies fatigue, weight change, polydipsia or polyurina. GENITOURINARY: Denies burning, hematuria or urgency with micturation. HEMATOLOGIC: Denies history of anemia or bleeding. PHYSICAL EXAMINATION Vital signs reviewed. CONSTITUTIONAL: No apparent distress. HEENT: Head is normocephalic. Pupils are equal, round. Sclerae anicteric. Mucous membranes of the mouth are moist. No JVD. No carotid bruit. CHEST EXAMINATION: Lungs are clear to auscultation. No chest wall tenderness is noted on palpation or with deep breathing. HEART EXAMINATION: Regular rate and rhythm. S1, S2 heard. No murmurs, gallops or rub. ABDOMEN: Soft, nontender. Positive bowel sounds. EXTREMITIES: 2+ peripheral pulses, no lower extremity edema and no calf tenderness. NEUROLOGIC EXAMINATION: Patient is awake, alert and oriented x3. ASSESSMENT 1. Non-STEMI may be type II versus type I mechanism 2. Cardiomyopathy EF 40-45%, rule out ischemic 3. Crack cocaine use 4. Altered mental status improved 5. Family history of CAD 6. Tobacco, marijuana, alcohol use 7. Mild hemoptysis, blood-tinged sputum 8. GERD 9. Medical noncompliance not seen a doctor PLAN Patient with loss of consciousness and requiring chest compressions. Appears related to drug overdose however per patient only using crack cocaine. Acute kidney injury has improved and appears at his baseline. He does however have decreased EF 40- 45% and multiple risk factors and therefore discussed recommendations for heart catheterization with possible PCI. Patient is agreeable. Heart catheterization 02/18. Continue heparin drip and aspirin. No beta sb given cocaine use. Further recommendations to follow. Past Medical History Past Medical History: Unable to Obtain History of Any Multi-Drug Resistant Organisms: Unobtainable Past Surgical History: Unable to Obtain Past Anesthesia/Blood Transfusion Reactions: No Reported Reaction Past Psychological History: No Psychological Hx Reported Past Drug Use History: Marijuana - Past Family History Mother Family Medical History: Diabetes Mellitus, Myocardial Infarction ([place]) Additional Family Medical History / Comment(s): Mother passed at age 46 from [place] Father Family Medical History: Cancer Additional Family Medical History / Comment(s): Father passed in his 50's from lung cancer Medications and Allergies Home Medications Medication Instructions Recorded Confirmed Type No Known Home Medications 02/16/22 02/16/22 History Allergies Allergy/AdvReac Type Severity Reaction Status Date / Time No Known Allergies Allergy Verified 02/16/22 12:13 Physical Exam Vitals: Vital Signs Temp Pulse Resp BP Pulse Ox 02/17/22 17:00 110 H 17 138/73 95 02/17/22 16:00 98.4 F 91 12 138/73 91 L 02/17/22 15:33 76 02/17/22 15:24 74 02/17/22 15:00 115 H 16 105/69 02/17/22 14:00 90 15 111/60 93 L 02/17/22 13:00 74 12 105/65 93 L 02/17/22 12:00 98.1 F 61 12 93 L 02/17/22 11:38 74 02/17/22 11:26 70 02/17/22 11:00 86 14 128/90 93 L 02/17/22 10:00 61 12 99/55 93 L 02/17/22 09:00 61 12 113/98 93 L 02/17/22 08:00 98.5 F 60 16 113/70 93 L 02/17/22 07:51 84 02/17/22 07:42 80 02/17/22 07:00 78 15 101/68 91 L 02/17/22 06:00 61 9 L 100/77 94 L 02/17/22 05:00 74 16 96/79 94 L 02/17/22 04:00 98.1 F 68 15 117/85 93 L 02/17/22 03:00 80 11 L 128/80 92 L 02/17/22 02:00 82 10 L 112/85 92 L 02/17/22 01:00 78 13 110/80 91 L 02/17/22 00:00 98.3 F 74 12 126/76 89 L 02/16/22 23:00 97 12 108/74 91 L 02/16/22 22:09 89 13 108/74 92 L 02/16/22 22:00 85 9 L 113/77 94 L 02/16/22 21:00 107 H 26 H 116/79 92 L 02/16/22 20:52 81 02/16/22 20:42 78 02/16/22 20:00 98.3 F 95 23 113/77 93 L 02/16/22 19:00 83 20 128/89 88 L 02/16/22 18:43 12 02/16/22 18:00 82 11 L 128/89 91 L Intake and Output 02/17/22 02/17/22 02/17/22 06:59 14:59 22:59 Intake Total 525 410 20 Output Total 1525 1400 0 Balance -1000 -990 20 Intake: IV 525 210 20 0.9 NS 425 210 20 Piperacillin-Tazobactam 3 100 .375 gm In Sodium Chloride 0.9% 100 ml @ 25 mls/hr IVPB Q8H [facility] Rx#: [id number] Intake, IV Titration 200 Amount Magnesium Sulfate-D5w Pmx 200 1 gm In Dextrose/Water 1 100ml.bag @ 100 mls/hr IVPB Q1H [facility] Rx#: [id number] Output: Urine 1525 1400 0 Other: Voiding Method Urinal Urinal Urinal # Voids 3 Weight 97.3 kg Results 02/17/22 05:56 02/17/22 05:56 Cardiac Enzymes 02/16/22 02/16/22 02/17/22 Range/Units 21:34 23:14 05:56 AST 74 H (17-59) U/L Troponin I 0.454 H* 0.469 H* (0.000-0.034) ng/mL Coagulation 02/16/22 02/17/22 Range/Units 21:34 05:56 PT 11.8 (9.0-12.0) sec APTT 60.3 H 47.5 H (22.0-30.0) sec CBC 02/17/22 Range/Units 05:56 WBC 11.2 H (3.8-10.6) k/uL RBC 4.17 L (4.30-5.90) m/uL Hgb 14.0 (13.0-17.5) gm/dL Hct 40.7 (39.0-53.0) % Plt Count 176 (150-450) k/uL Comprehensive Metabolic Panel 02/17/22 Range/Units 05:56 Sodium 137 (137-145) mmol/L Potassium 4.3 (3.5-5.1) mmol/L Chloride 107 (98-107) mmol/L Carbon Dioxide 24 (22-30) mmol/L BUN 16 (9-20) mg/dL Creatinine 0.87 (0.66-1.25) mg/dL Glucose 123 H (74-99) mg/dL Calcium 8.0 L (8.4-10.2) mg/dL AST 74 H (17-59) U/L ALT 48 (4-49) U/L Alkaline Phosphatase 74 (38-126) U/L Total Protein 6.1 L (6.3-8.2) g/dL Albumin 3.4 L (3.5-5.0) g/dL Current Medications Generic Name Dose Route Start Last Admin Trade Name Freq PRN Reason Stop Dose Admin Acetaminophen 650 mg 02/17/22 17:01 02/17/22 17:14 Acetaminophen Tab 325 Mg Tab PO 650 mg Q6HR PRN Administration Fever and/ or Pain Al Hydroxide/Mg Hydroxide 30 ml 02/16/22 17:35 02/17/22 12:56 Mag Hydrox/Al Hydrox/Simeth 30 Ml Cup PO 30 ml Q4HR PRN Administration GI Upset Albuterol/Ipratropium 3 ml 02/16/22 11:40 02/16/22 16:58 Ipratropium-Albuterol 3 Ml Neb INHALATION 3 ml RT-Q4H PRN Administration Shortness Of Breath Or Wheezing Albuterol/Ipratropium 3 ml 02/16/22 20:00 02/17/22 15:22 Ipratropium-Albuterol 3 Ml Neb INHALATION 3 ml RT-QID [facility] Administration Aspirin 81 mg 02/17/22 09:00 02/17/22 08:20 Aspirin 81 Mg PO 81 mg DAILY [facility] Administration Heparin Sodium (Porcine) 0 unit 02/16/22 15:13 Heparin Sodium 1,000 Un/Ml (10ml Vl) IV PER PROTOCOL PRN Low PTT Protocol Piperacillin Sod/Tazobactam 100 mls @ 25 mls/hr 02/16/22 12:00 02/17/22 12:56 Sod 3.375 gm/ Sodium Chloride IVPB 25 mls/hr Q8H [facility] Administration Protocol Heparin Sodium/Sodium Chloride 250 mls @ 9.798 mls/hr 02/16/22 15:15 02/16/22 17:18 25,000 unit/ Sodium Chloride IV 12 units/kg/hr .Q24H [facility] 9.798 mls/hr Administration Protocol 12 UNITS/KG/HR Miscellaneous Information 1 each 02/17/22 08:00 Magnesium Replacement Protocol 1 Each Misc MISCELLANE DAILY PRN Per Protocol Protocol Naloxone HCl 0.2 mg 02/16/22 11:40 Naloxone 0.4 Mg/Ml 1 Ml Vial IV Q2M PRN Opioid Reversal Pantoprazole Sodium 40 mg 02/18/22 07:30 Pantoprazole 40 Mg Tablet PO [id number] [facility] Intake and Output 02/17/22 02/17/22 02/17/22 06:59 14:59 22:59 Intake Total 525 410 20 Output Total 1525 1400 0 Balance -1000 -990 20 Intake: IV 525 210 20 0.9 NS 425 210 20 Piperacillin-Tazobactam 3 100 .375 gm In Sodium Chloride 0.9% 100 ml @ 25 mls/hr IVPB Q8H [facility] Rx#: [id number] Intake, IV Titration 200 Amount Magnesium Sulfate-D5w Pmx 200 1 gm In Dextrose/Water 1 100ml.bag @ 100 mls/hr IVPB Q1H [facility] Rx#: [id number] Output: Urine 1525 1400 0 Other: Voiding Method Urinal Urinal Urinal # Voids 3 Weight 97.3 kg 02/17/22 05:56 02/17/22 05:56
[2022-02-17] MEDS ORDERED: NITROGLYCERIN SL TABS 0.4 MG TAB SUBLINGUAL PRN (17:21)
[2022-02-17] MEDS ORDERED: ALPRAZolam 0.25 MG TAB PO PRN (17:21)
[2022-02-17] MEDS ORDERED: ATORVASTATIN 80 MG TAB PO STA (17:21)
[2022-02-17] MEDS ORDERED: ASPIRIN 325 MG TAB PO STA (17:21)
[2022-02-17] MEDS ORDERED: ALPRAZolam 0.5 MG TAB PO PRN (17:21)
[2022-02-17] MEDS: HEPARIN SOD,PORK IN 0.45% NACL 25,000 UNIT in 0.45% NACL 1 250ML.BAG IV SCH (17:41)
[2022-02-17 22:31] LABS: Chol/HDL Ratio 2.82 Ratio; LDL Cholesterol,Calculated 78.9 mg/dL (0.0-131.0); VLDL Calculation 12.74 mg/dL (5.00-40.00)
[2022-02-18] MEDS: PIPERACILLIN-TAZOBACTAM 3.375 GM in SODIUM CHLORIDE 0.9% 100 ML IVPB SCH ×3 (06:46→20:10)
[2022-02-18] MEDS: PANTOPRAZOLE 40 MG TABLET PO SCH (06:48)
[2022-02-18] MEDS ORDERED: HEPARIN SODIUM,PORCINE 2,500 UNIT in SODIUM CHLORIDE 0.9% 250 ML IRRIGATION PRN (07:00)
[2022-02-18] MEDS ORDERED: HEPARIN SODIUM,PORCINE 10,000 UNIT in SODIUM CHLORIDE 0.9% 1,000 ML IRRIGATION PRN (07:00)
[2022-02-18 07:14] LABS: HCT 38.7 % (39.0-53.0); HGB 12.9 gm/dL (13.0-17.5); MCH 31.9 pg (25.0-35.0); MCHC 33.4 g/dL (31.0-37.0); MCV 95.4 fL (80.0-100.0); Mean Platelet Volume 7.8; Platelet Count 171 k/uL (150-450); RBC 4.06 m/uL (4.30-5.90); RDW 13.3 % (11.5-15.5); WBC 11.8 k/uL (3.8-10.6)
[2022-02-18 07:25] LABS: African American GFR (CKD) >90 (>60 ml/min/1.73 sqM); Anion Gap 3 mmol/L; Blood Urea Nitrogen 12 mg/dL (9-20); Calcium 8.3 mg/dL (8.4-10.2); Carbon Dioxide 27 mmol/L (22-30); Chloride 107 mmol/L (98-107); Glucose 104 mg/dL (74-99); Magnesium 2.2 mg/dL (1.6-2.3); Non-African American GFR(CKD) >90 (>60 ml/min/1.73 sqM); Potassium 4.3 mmol/L (3.5-5.1); Sodium 137 mmol/L (137-145)
[2022-02-18] MEDS: IPRATROPIUM-ALBUTEROL 3 ML NEB INHALATION SCH ×4 (07:43→19:46)
[2022-02-18 07:53] LABS: INR 0.9 (<1.2); Partial Thromboplastin Time 35.8 sec (22.0-30.0); Prothrombin Time 10.3 sec (9.0-12.0)
[2022-02-18] MEDS ORDERED: FUROSEMIDE 10 MG/ML 4 ML VIAL IV STA (08:50)
[2022-02-18] MEDS: ACETAMINOPHEN TAB 325 MG TAB PO PRN (08:57)
[2022-02-18] MEDS: METOPROLOL TARTRATE 12.5 MG TAB PO SCH ×2 (08:57→20:15)
[2022-02-18] MEDS: ASPIRIN 81 MG PO SCH (08:57)
--- NOTE | 2022-02-18 09:05 | XR ---
EXAMINATION TYPE: XR chest 1V portable DATE OF EXAM: 02/18/2022 COMPARISON: 02/17/2022 HISTORY: Shortness of breath TECHNIQUE: Single frontal view of the chest is obtained. FINDINGS: Diffuse bilateral infiltrates demonstrate interval progression. Limited inspiration with n o sizable pleural effusion or pneumothorax. Heart size stable. IMPRESSION: Interval progressive consolidation with diffuse bilateral infiltrates. Correlate for dif fuse pneumonia or ARDS.
--- NOTE | 2022-02-18 10:29 | P.PN ---
Subjective HPI: This patient presented to the hospital with the multiple issues that they tobacco alcohol use cocaine abuse and has developed heart failure and non-ST elevation PR ejection fraction in the 45% range also has a pneumonia. He is going for a cardiac cath today clinically seems a bit volume overloaded I will give him one dose of IV Lasix 40 mg. We'll proceed with cardiac cath which Dr. Kang will perform an based on findings further recommendations. PHYSICIAL EXAM: JVD is evident S1-S2 heard normally short systolic murmur lungs revealed bilateral fine rales abdomen is soft nontender lower reveal diminished pulses central nervous system is normal. IMPRESSION: 1. Probable non-ST elevation PR. 2. Multidrug abuse. 3. Unresponsiveness and CPR. 4. . 5. . RECOMMENDATIONS: Cautious diuresis proceed with cardiac cath based on findings further recommendations. Prognosis remains poor. Objective - Vital Signs Vital signs: Vital Signs Temp 98.4 F 02/18/22 08:00 Pulse 78 02/18/22 08:00 Resp 16 02/18/22 08:00 BP 115/68 02/18/22 08:55 Pulse Ox 94 L 02/18/22 08:00 FiO2 8 02/18/22 01:00 Intake & Output 02/17/22 02/18/22 02/18/22 18:59 06:59 18:59 Intake Total 688.908 350 179.948 Output Total 1850 1650 1050 Balance -1161.092 -1300 -870.052 Weight 95.8 kg Intake: IV 250 110 40 0.9 NS 250 110 40 Intake, IV Titration 438.908 139.948 Amount Heparin Sod,Pork in 0.45% 238.908 139.948 NaCl 25,000 unit In 0.45 % NaCl 1 250ml.bag @ 12 UNITS/KG/HR 9.798 mls/hr IV .Q24H [facility] Rx#: [id number] Magnesium Sulfate-D5w Pmx 200 1 gm In Dextrose/Water 1 100ml.bag @ 100 mls/hr IVPB Q1H [facility] Rx#: [id number] Oral 240 Output: Urine 1850 1650 1050 Other: Voiding Method Urinal Urinal Urinal - Labs CBC & Chem 7: 02/18/22 06:30 02/18/22 06:30 Labs: Abnormal Lab Results - Last 24 Hours (Table) 02/18/22 02/18/22 02/18/22 Range/Units 06:30 06:30 06:30 WBC 11.8 H (3.8-10.6) k/uL RBC 4.06 L (4.30-5.90) m/uL Hgb 12.9 L (13.0-17.5) gm/dL Hct 38.7 L (39.0-53.0) % APTT 35.8 H (22.0-30.0) sec Glucose 104 H (74-99) mg/dL Calcium 8.3 L (8.4-10.2) mg/dL Microbiology - Last 24 Hours (Table) 02/16/22 12:40 Blood Culture - Preliminary Blood No Growth after 24 hours 02/16/22 12:25 Blood Culture - Preliminary Blood No Growth after 24 hours
--- NOTE | 2022-02-18 11:08 | P.PN ---
Subjective Progress Note Date: 02/18/22 Principal diagnosis: Acute hypoxic respiratory failure 52-year-old male with previous history of drug abuse including cocaine, crack, had a relapse, and was found unresponsive at her friend's house this morning. Patient's sister at the bedside also stated that CPR was also performed, but it is unknown for how long, and the details. When the EMS arrived patient was given Narcan with good response, and patient Required 3 doses. He was brought into the emergency department and started on Narcan drip is 0.6 milligram per hour. Patient is currently on a nonrebreather mask, satting 94%. He had been vomiting. Chest x-ray showing increased opacities bilaterally greater thr oughout the left lung, there is suspicion for aspiration related pneumonia or pulmonary edema. Brain CT showed no acute intracranial hemorrhage. Lab work showed elevated white count of 15.5, hemoglobin of 17, potassium of 6.2, BUN of 20 creatinine 2.13, troponin of 0.191, proBNP of 236, serum alcohol was less than 10. Patient is awake and alert, he is hard of hearing, but he is oriented 3, answering questions appropriately. He admits to doing cocaine and crack last night for the first time in the last 5 months, he states he has been quite stressed at work, he works at a [employer] in [place], [place]. In addition he also smokes cigarettes and marijuana on a regular basis. He remains on Narcan infusion, he is awaiting a bed in the ICU Patient was reevaluated today on 02/17/2022, I saw this patient yesterday in the ER, and admitted the patient to the ICU with cocaine overdose, aspiration pneumonia, possible non-ST elevation myocardial infarction, and the patient had to be placed initially on BiPAP, transitioned to high flow nasal cannula presently on 8 L high flow with O2 sats of 93%, patient was placed on Narcan drip which was discontinued last night. Patient is sitting in bed, very comfortable, does not seem to be in any distress. His chest x-ray is showing improvement in his bilateral infiltrates however not completely resolved. Patient is hemodynamically stable, he was seen by cardiology and he was placed on heparin for elevated troponin. And apparently had an episode of chest discomfort and diaphoresis last night. His echocardiogram showed ejection fraction of 40-45%. Cardiology consultation is pending. Patient was placed on antibiotics in the form of Zosyn empirically for aspiration pneumonia On 02/18/2022 patient seen in the intensive care unit. he is awake and alert, oriented 3, he remains on supplemental oxygen, per high flow nasal cannula at 8 L satting 94%, does not appear to be in any acute distress, denies any chest pain, no coughing or wheezing, afebrile. Follow-up chest x-ray today showing internal progressive consolidation with diffuse bilateral infiltrates. Patient remains on Zosyn for empiric antibiotic coverage, pro-calcitonin level has been ordered and is pending, today's labs have been reviewed showing blood blood cell count of 11.8, hemoglobin of 12.9, electrolytes and renal profile were unremarkable. Patient remains on heparin infusion, aspirin, high-intensity Lipitor, he did receive a dose of IV Lasix per cardiology. And has been started on maintenance dose of Lasix 40 mg twice daily. [facility], echocardiogram showed mildly impaired LV function with EF of 40-45%. Highest troponin was 0.469 with the fifth set of troponins, and patient is scheduled for heart catheterization today. Objective - Vital Signs Vital signs: Vital Signs Temp 98.4 F 02/18/22 08:00 Pulse 78 02/18/22 08:00 Resp 16 02/18/22 08:00 BP 115/68 02/18/22 08:55 Pulse Ox 94 L 02/18/22 08:00 FiO2 8 02/18/22 01:00 Intake & Output 02/17/22 02/18/22 02/18/22 18:59 06:59 18:59 Intake Total 688.908 350 179.948 Output Total 1850 1650 1625 Balance -1161.092 -1300 -1445.052 Weight 95.8 kg Intake: IV 250 110 40 0.9 NS 250 110 40 Intake, IV Titration 438.908 139.948 Amount Heparin Sod,Pork in 0.45% 238.908 139.948 NaCl 25,000 unit In 0.45 % NaCl 1 250ml.bag @ 12 UNITS/KG/HR 9.798 mls/hr IV .Q24H [facility] Rx#: [id number] Magnesium Sulfate-D5w Pmx 200 1 gm In Dextrose/Water 1 100ml.bag @ 100 mls/hr IVPB Q1H [facility] Rx#: [id number] Oral 240 Output: Urine 1850 1650 1625 Other: Voiding Method Urinal Urinal Urinal - Exam GENERAL EXAM: Alert, very pleasant, 52-year-old male, on 8 L of oxygen and the pulse ox of 94%, oriented 3, comfortable in no apparent distress. HEAD: Normocephalic/atraumatic. EYES: Normal reaction of pupils, equal size. Conjunctiva pink, sclera white. NOSE: Clear with pink turbinates. THROAT: No erythema or exudates. NECK: No masses, no JVD, no thyroid enlargement, no adenopathy. CHEST: No chest wall deformity. Symmetrical expansion. LUNGS: Equal air entry with diffuse crackles CVS: Regular rate and rhythm, normal S1 and S2, no gallops, no murmurs, no rubs ABDOMEN: Soft, nontender. No hepatosplenomegaly, normal bowel sounds, no guarding or rigidity. EXTREMITIES: No clubbing, no edema, no cyanosis, 2+ pulses and upper and lower extremities. MUSCULOSKELETAL: Muscle strength and tone normal. SPINE: No scoliosis or deformity SKIN: No rashes CENTRAL NERVOUS SYSTEM: Alert and oriented -3. No focal deficits, tone is normal in all 4 extremities. PSYCHIATRIC: Alert and oriented -3. Appropriate affect. Intact judgment and insight. - Labs CBC & Chem 7: 02/18/22 06:30 02/18/22 06:30 Labs: Abnormal Lab Results - Last 24 Hours (Table) 02/18/22 02/18/22 02/18/22 Range/Units 06:30 06:30 06:30 WBC 11.8 H (3.8-10.6) k/uL RBC 4.06 L (4.30-5.90) m/uL Hgb 12.9 L (13.0-17.5) gm/dL Hct 38.7 L (39.0-53.0) % APTT 35.8 H (22.0-30.0) sec Glucose 104 H (74-99) mg/dL Calcium 8.3 L (8.4-10.2) mg/dL Microbiology - Last 24 Hours (Table) 02/16/22 12:40 Blood Culture - Preliminary Blood No Growth after 24 hours 02/16/22 12:25 Blood Culture - Preliminary Blood No Growth after 24 hours Assessment and Plan Plan: Assessment: #1. Acute hypoxic respiratory failure related to a suspected aspiration. There may be a component of pulmonary edema #2. Drug overdose, patient admits to taking cocaine and crack, responded to Narcan, currently remains on Narcan infusion #3. Acute kidney injury, resolved #4. Acute hyperkalemia related to acute kidney injury, serum potassium of 6.2, treated with calcium gluconate, sodium bicarb, repeat BMP is pending #5. Troponin leak, rule out possibility of non-ST elevated [place] #6. History of drug abuse including cocaine, crack, marijuana #7. Tobacco dependence Plan: Continue with current antibiotics Awaiting pro-calcitonin level Wean FiO2 to keep O2 sat saturation is at or above 92% Diuretics per cardiology recommendations Patient is scheduled for cardiac cath today We'll continue to follow his course in the intensive care unit I have personally seen and examined the patient, performed the documentation and the assessment and plan as written. Number of minutes spent on the visit: [15] Time with Patient: Less than 30
[2022-02-18] MEDS ORDERED: VERAPAMIL 2.5 MG/ML 2 ML AMP ONE (13:14)
[2022-02-18] MEDS ORDERED: fentaNYL (PF) 50 MCG/ML 2 ML AMP ONE (13:28)
[2022-02-18] MEDS ORDERED: HEPARIN SODIUM 1,000 UN/ML (10ML VL) ONE (13:30)
--- NOTE | 2022-02-18 13:30 | P.PN ---
Subjective Progress Note Date: 02/18/22 Principal diagnosis: cocoaine abuse Patient has been having cough with some hemoptysis. He says his breathing has improved. Denied having chest pain. He is currently on 5 L of oxygen. Objective - Vital Signs Vital signs: Vital Signs Temp 98.5 F 02/18/22 12:00 Pulse 65 02/18/22 12:00 Resp 16 02/18/22 12:40 BP 119/69 02/18/22 12:00 Pulse Ox 92 L 02/18/22 12:00 FiO2 8 02/18/22 01:00 Intake & Output 02/17/22 02/18/22 02/18/22 18:59 06:59 18:59 Intake Total 688.908 350 272.531 Output Total 1850 1650 2700 Balance -1161.092 -1300 -2427.469 Weight 95.8 kg Intake: IV 250 110 80 0.9 NS 250 110 80 Intake, IV Titration 438.908 192.531 Amount Heparin Sod,Pork in 0.45% 238.908 192.531 NaCl 25,000 unit In 0.45 % NaCl 1 250ml.bag @ 12 UNITS/KG/HR 9.798 mls/hr IV .Q24H [facility] Rx#: [id number] Magnesium Sulfate-D5w Pmx 200 1 gm In Dextrose/Water 1 100ml.bag @ 100 mls/hr IVPB Q1H [facility] Rx#: [id number] Oral 240 Output: Urine 1850 1650 2700 Other: Voiding Method Urinal Urinal Urinal - Exam Constitutional: No acute distress, conversant, pleasant Eyes:Anicteric sclerae, moist conjunctiva, no lid-lag, PERRLA, ENMT: Oropharynx clear, no erythema, exudates Neck: Supple, FROM, no masses, or JVD, No carotid bruits, No thyromegaly Lungs: Clear to auscultation, Clear to percussion, Normal respiratory effort, no accessory muscle use Cardiovascular: Heart regular in rate and rhythm, No murmurs, gallops, or rubs, No peripheral edema Abdominal: Soft, Nontender, no guarding, rebound or rigidity, Normoactive bowel sounds, No hepatomegaly, No splenomegaly, No palpable mass Skin: Normal temperature, tone, texture, turgor, no induration, No subcutaneous nodules, No rash, lesions, No ulcers Extremities: No digital cyanosis, No clubbing, Pedal pulses intact and symmetrical, Radial pulses intact and symmetrical, No calf tenderness Psychiatric: Alert and oriented to person, place and time, appropriate affect, intact judgement Neuro: Muscles Strength 5/5 in all 4 extremities, Sensation to light touch g rossly present throughout, Cranial nerves II-XII grossly intact, no focal sensory deficits - Labs CBC & Chem 7: 02/18/22 06:30 02/18/22 06:30 Labs: Abnormal Lab Results - Last 24 Hours (Table) 02/18/22 02/18/22 02/18/22 Range/Units 06:30 06:30 06:30 WBC 11.8 H (3.8-10.6) k/uL RBC 4.06 L (4.30-5.90) m/uL Hgb 12.9 L (13.0-17.5) gm/dL Hct 38.7 L (39.0-53.0) % APTT 35.8 H (22.0-30.0) sec Glucose 104 H (74-99) mg/dL Calcium 8.3 L (8.4-10.2) mg/dL 02/18/22 Range/Units 12:04 WBC (3.8-10.6) k/uL RBC (4.30-5.90) m/uL Hgb (13.0-17.5) gm/dL Hct (39.0-53.0) % APTT 52.0 H (22.0-30.0) sec Glucose (74-99) mg/dL Calcium (8.4-10.2) mg/dL Microbiology - Last 24 Hours (Table) 02/16/22 12:40 Blood Culture - Preliminary Blood No Growth after 24 hours 02/16/22 12:25 Blood Culture - Preliminary Blood No Growth after 24 hours Assessment and Plan Plan: Unresponsiveness Toxic encephalopathy Cocaine abuse Titrate O2 down as tolerated. Advised to quit Aspiration pneumonia with cxr showing central bilateral edema vs. infiltrates Zosyn Bronchodilators. Still requiring 5L currently Aspiration precautions Elevated troponin likely non-ST elevation [place] Cardiac following Heparin drip initiated, given lasix 02/18 Going for heart cath Acute kidney injury with hyperkalemia He was given bicarb and calcium gluconate Resolved Avoid nephrotoxic meds DVT prophylaxis Already on heparin
[2022-02-18] MEDS ORDERED: IV FLUID CONTINUATION 1,000 ML IV ONE (13:36)
[2022-02-18] MEDS ORDERED: fentaNYL (PF) 50 MCG/ML 2 ML AMP IV ONE (13:44)
[2022-02-18] MEDS ORDERED: MIDAZOLAM 2 MG/2 ML VIAL IV ONE (13:44)
[2022-02-18] MEDS ORDERED: LIDOCAINE 1% INJ 10MG/ML (5 ML VIAL-PF) SQ ONE (13:45)
[2022-02-18] MEDS ORDERED: VERAPAMIL SYRINGE (5 MG/10 ML) INTRAARTER ONE (13:47)
[2022-02-18] MEDS ORDERED: HEPARIN SODIUM 1,000 UN/ML (10ML VL) IV ONE (13:49)
--- NOTE | 2022-02-18 13:59 | P.CARDCATH ---
Description of Procedure: PROCEDURES PERFORMED: Left heart catheterization, bilateral coronary angiography INDICATION: NonSTEMI CONSENT:I have discussed the risks, benefits and alternative therapies for the above-mentioned procedure and for both sedation/analgesia as well as necessary blood product administration, if indicated, as they pertain to this patient. The patient has indicated understanding and acceptance of the risks and procedures discussed. PROCEDURE: After the risks, benefits and alternatives of the above mentioned procedure explained in detail with the patient, informed consent was obtained. Patient was taken to the catheterization lab and prepped and draped in usual fashion. 1% lidocaine was used to anesthetize the right radial artery. A 6- Italian sheath was placed in the right radial artery using modified Seldinger technique. Left coronary angiography was performed with a 5-Italian JL 3.5 catheter and right coronary angiography was performed with a 5-Italian JR5 catheter in various views. A 5-Italian FR5 catheter was inserted into the left ventricle and pressure measurements were obtained. The right radial sheath was removed and a TR band was placed with hemostasis achieved. The patient tolerated the procedure well. Patient was transported back to the post catheterization holding area in stable condition. Conscious Sedation: Patient was monitored under the direct supervision of vision of myself for conscious sedation using Versed and fentanyl for a total duration of 10 minutes HEMODYNAMICS: Aortic: 18/76 LV: 112/5, LVEDP 16 SELECTIVE CORONARY ARTERIOGRAPHY: LEFT MAIN: The left main is a large caliber vessel which bifurcates into the LAD and circumflex. There is no significant stenosis. LEFT ANTERIOR DESCENDING CORONARY ARTERY: LAD is a large caliber vessel which wraps around to the apex. There are mild luminal irregularities up to 10-20% of the LAD. LEFT CIRCUMFLEX CORONARY ARTERY: Left circumflex is a moderate caliber vessel with mild 10% stenosis.. RIGHT CORONARY ARTERY: The right coronary artery is a large caliber vessel which gives off a PDA and PLV branch and is the dominant vessel. There is no significant stenosis with up to 30% stenosis of the PDA. FINAL IMPRESSION: 1. Minimal CAD as described above with mild luminal irregularities at worst 30% stenosis of the PDA 2. Minimal elevated left sided filling pressures PLAN: 1. Aggressive risk factor modification per most recent ACC/AHA guidelines. 2. Follow-up in the office in 1-2 weeks. 3. Tobacco and cocaine cessation.
[2022-02-18] MEDS ORDERED: IOPAMIDOL-370 125ML BTL INJ ONE (14:04)
[2022-02-18] MEDS: HEPARIN SOD,PORK IN 0.45% NACL 25,000 UNIT in 0.45% NACL 1 250ML.BAG IV SCH (18:18)
[2022-02-19] MEDS: PIPERACILLIN-TAZOBACTAM 3.375 GM in SODIUM CHLORIDE 0.9% 100 ML IVPB SCH ×3 (03:57→20:23)
[2022-02-19 05:57] LABS: Basophils % (A) 0 %; Eosinophils # (A) 0.1 k/uL (0-0.7); Eosinophils % (A) 1 %; HCT 40.2 % (39.0-53.0); HGB 13.8 gm/dL (13.0-17.5); Lymphocytes # (A) 1.4 k/uL (1.0-4.8); Lymphocytes % (A) 14 %; MCH 32.5 pg (25.0-35.0); MCHC 34.3 g/dL (31.0-37.0); MCV 94.6 fL (80.0-100.0); Mean Platelet Volume 8.3; Monocytes # (A) 0.4 k/uL (0-1.0); Monocytes % (A) 4 %; Neutrophils # (A) 8.6 k/uL (1.3-7.7); Neutrophils % (A) 81 %; Platelet Count 212 k/uL (150-450); RBC 4.25 m/uL (4.30-5.90); RDW 13.2 % (11.5-15.5); WBC 10.6 k/uL (3.8-10.6)
[2022-02-19 06:15] LABS: African American GFR (CKD) >90 (>60 ml/min/1.73 sqM); Anion Gap 5 mmol/L; Blood Urea Nitrogen 15 mg/dL (9-20); Calcium 8.6 mg/dL (8.4-10.2); Carbon Dioxide 29 mmol/L (22-30); Chloride 103 mmol/L (98-107); Glucose 99 mg/dL (74-99); Non-African American GFR(CKD) >90 (>60 ml/min/1.73 sqM); Potassium 3.8 mmol/L (3.5-5.1); Sodium 137 mmol/L (137-145)
[2022-02-19] MEDS ORDERED: Potassium Replacement Protocol 1 EACH MISC MISCELLANE PRN (07:02)
[2022-02-19] MEDS: PANTOPRAZOLE 40 MG TABLET PO SCH (07:11)
[2022-02-19] MEDS: IPRATROPIUM-ALBUTEROL 3 ML NEB INHALATION SCH ×4 (07:38→19:14)
--- NOTE | 2022-02-19 07:51 | XR ---
EXAMINATION TYPE: XR chest 1V portable DATE OF EXAM: 02/19/2022 COMPARISON: Chest x-ray 02/18/2022 HISTORY: Shortness of breath TECHNIQUE: Single frontal view of the chest is obtained. FINDINGS: Bilateral airspace disease is improved. No evident pneumothorax or pleural effusion. Cardi ac mediastinal silhouette is stable. Bones are unchanged. There are overlying leads, artifacts. IMPRESSION: There is some improvement in bilateral airspace disease, improved aeration within the kiarra ngs.
[2022-02-19] MEDS ORDERED: POTASSIUM CHLORIDE ER 20 MEQ TAB.ER PO SCH (08:00)
[2022-02-19] MEDS ORDERED: FUROSEMIDE 40 MG TAB PO SCH (09:00)
[2022-02-19] MEDS: FUROSEMIDE 10 MG/ML 4 ML VIAL IV SCH ×2 (09:52→20:25)
[2022-02-19] MEDS: ASPIRIN 81 MG PO SCH (09:52)
[2022-02-19] MEDS: METOPROLOL TARTRATE 12.5 MG TAB PO SCH ×2 (09:52→20:24)
--- NOTE | 2022-02-19 11:26 | P.PN ---
Subjective Progress Note Date: 02/19/22 Principal diagnosis: Acute hypoxic respiratory failure 52-year-old male with previous history of drug abuse including cocaine, crack, had a relapse, and was found unresponsive at her friend's house this morning. Patient's sister at the bedside also stated that CPR was also performed, but it is unknown for how long, and the details. When the EMS arrived patient was given Narcan with good response, and patient Required 3 doses. He was brought into the emergency department and started on Narcan drip is 0.6 milligram per hour. Patient is currently on a nonrebreather mask, satting 94%. He had been vomiting. Chest x-ray showing increased opacities bilaterally greater thr oughout the left lung, there is suspicion for aspiration related pneumonia or pulmonary edema. Brain CT showed no acute intracranial hemorrhage. Lab work showed elevated white count of 15.5, hemoglobin of 17, potassium of 6.2, BUN of 20 creatinine 2.13, troponin of 0.191, proBNP of 236, serum alcohol was less than 10. Patient is awake and alert, he is hard of hearing, but he is oriented 3, answering questions appropriately. He admits to doing cocaine and crack last night for the first time in the last 5 months, he states he has been quite stressed at work, he works at a [employer] in [place], [place]. In addition he also smokes cigarettes and marijuana on a regular basis. He remains on Narcan infusion, he is awaiting a bed in the ICU Patient was reevaluated today on 02/17/2022, I saw this patient yesterday in the ER, and admitted the patient to the ICU with cocaine overdose, aspiration pneumonia, possible non-ST elevation myocardial infarction, and the patient had to be placed initially on BiPAP, transitioned to high flow nasal cannula presently on 8 L high flow with O2 sats of 93%, patient was placed on Narcan drip which was discontinued last night. Patient is sitting in bed, very comfortable, does not seem to be in any distress. His chest x-ray is showing improvement in his bilateral infiltrates however not completely resolved. Patient is hemodynamically stable, he was seen by cardiology and he was placed on heparin for elevated troponin. And apparently had an episode of chest discomfort and diaphoresis last night. His echocardiogram showed ejection fraction of 40-45%. Cardiology consultation is pending. Patient was placed on antibiotics in the form of Zosyn empirically for aspiration pneumonia On 02/18/2022 patient seen in the intensive care unit. he is awake and alert, oriented 3, he remains on supplemental oxygen, per high flow nasal cannula at 8 L satting 94%, does not appear to be in any acute distress, denies any chest pain, no coughing or wheezing, afebrile. Follow-up chest x-ray today showing internal progressive consolidation with diffuse bilateral infiltrates. Patient remains on Zosyn for empiric antibiotic coverage, pro-calcitonin level has been ordered and is pending, today's labs have been reviewed showing blood blood cell count of 11.8, hemoglobin of 12.9, electrolytes and renal profile were unremarkable. Patient remains on heparin infusion, aspirin, high-intensity Lipitor, he did receive a dose of IV Lasix per cardiology. And has been started on maintenance dose of Lasix 40 mg twice daily. Cardiology service is [facility], echocardiogram showed mildly impaired LV function with EF of 40-45%. Highest troponin was 0.469 with the fifth set of troponins, and patient is scheduled for heart catheterization today. On 02/19/2022 patient seen in follow-up. Patient had a heart catheterization yesterday on 12/19/2021 which showed minimal CAD with mild luminal irregularities minimal elevated left-sided filling pressures with LVEDP of 16. Aggressive risk modification was recommended, tobacco and cocaine cessation. FiO2 is currently down to 4 L, pulse ox is 93%, patient is working on his incentive spirometer, lung sounds are positive for coarse crackles at bilateral bases, no rhonchi or wheezing, low-grade temperature overnight with a temp of 99.3F. Patient remains on Zosyn for empiric antibiotic coverage, he was also started on maintenance dose Lasix 40 mg twice daily, patient is in -3.4 L net fluid balance over the last 24 hours. Chest x-ray today showing improvement in bilateral airspace disease and improved aeration within the lungs. Blood cultures have shown no growth Objective - Vital Signs Vital signs: Vital Signs Temp 99.3 F 02/19/22 08:00 Pulse 96 02/19/22 11:00 Resp 29 H 02/19/22 11:00 BP 130/84 02/19/22 10:00 Pulse Ox 93 L 02/19/22 11:00 FiO2 8 02/18/22 01:00 Intake & Output 02/18/22 02/19/22 02/19/22 18:59 06:59 18:59 Intake Total 482.531 200 Output Total 3225 900 Balance -1442.469 -700 Weight 92.7 kg Intake: IV 290 200 0.9 NS 140 Piperacillin-Tazobactam 3 100 200 .375 gm In Sodium Chloride 0.9% 100 ml @ 25 mls/hr IVPB Q8H [facility] Rx#: [id number] Intake, IV Titration 192.531 Amount Heparin Sod,Pork in 0.45% 192.531 NaCl 25,000 unit In 0.45 % NaCl 1 250ml.bag @ 12 UNITS/KG/HR 9.798 mls/hr IV .Q24H [facility] Rx#: [id number] Output: Urine 3225 900 Other: Voiding Method Urinal Urinal # Voids 0 1 # Bowel Movements 1 - Exam GENERAL EXAM: Alert, very pleasant, 52-year-old male, on 4 L of oxygen and the pulse ox of 93%, oriented 3, comfortable in no apparent distress. HEAD: Normocephalic/atraumatic. EYES: Normal reaction of pupils, equal size. Conjunctiva pink, sclera white. NOSE: Clear with pink turbinates. THROAT: No erythema or exudates. NECK: No masses, no JVD, no thyroid enlargement, no adenopathy. CHEST: No chest wall deformity. Symmetrical expansion. LUNGS: Equal air entry with diffuse crackles CVS: Regular rate and rhythm, normal S1 and S2, no gallops, no murmurs, no rubs ABDOMEN: Soft, nontender. No hepatosplenomegaly, normal bowel sounds, no guarding or rigidity. EXTREMITIES: No clubbing, no edema, no cyanosis, 2+ pulses and upper and lower extremities. MUSCULOSKELETAL: Muscle strength and tone normal. SPINE: No scoliosis or deformity SKIN: No rashes CENTRAL NERVOUS SYSTEM: Alert and oriented -3. No focal deficits, tone is normal in all 4 extremities. PSYCHIATRIC: Alert and oriented -3. Appropriate affect. Intact judgment and insight. - Labs CBC & Chem 7: 02/19/22 05:32 02/19/22 05:32 Labs: Abnormal Lab Results - Last 24 Hours (Table) 02/18/22 02/19/22 Range/Units 12:04 05:32 RBC 4.25 L (4.30-5.90) m/uL Neutrophils # 8.6 H (1.3-7.7) k/uL APTT 52.0 H (22.0-30.0) sec Microbiology - Last 24 Hours (Table) 02/16/22 12:25 Blood Culture - Preliminary Blood No Growth after 48 hours 02/16/22 12:40 Blood Culture - Preliminary Blood No Growth after 48 hours Assessment and Plan Plan: Assessment: #1. Acute hypoxic respiratory failure related to a suspected aspiration. There may be a component of pulmonary edema #2. Probable non-ST elevated myocardial infarction #3. Minimal CAD as evident from the heart catheterization on 02/18/2022 #4. Drug overdose, patient admits to taking cocaine and crack, responded to Narcan, currently remains on Narcan infusion #5. Acute kidney injury, resolved #6. Acute hyperkalemia related to acute kidney injury, serum potassium of 6.2, treated with calcium gluconate, sodium bicarb, repeat BMP is pending #7. Troponin leak, rule out possibility of non-ST elevated [place] #8. History of drug abuse including cocaine, crack, marijuana #9. Tobacco dependence Plan: Clinically patient is improving, Fio2 currently down to 3 L Breathing comfortably, no complaints of chest discomfort Vital signs have been stable Cardiac cath results have been noted Continue with Lasix per cardiology Continue Claudia Today's chest x-ray showing improvement in the appearance of bilateral infiltrates Increase activity as tolerated Patient is stable for transfer out of intensive care unit today to 3 S. We'll continue to follow his course in the intensive care unit I have personally seen and examined the patient, performed the documentation and the assessment and plan as written. Number of minutes spent on the visit: [15] Time with Patient: Less than 30
--- NOTE | 2022-02-19 12:40 | P.PN ---
Subjective Progress Note Date: 02/19/22 Principal diagnosis: cocoaine abuse Patient doing well today. He is not having any blood with coughing anymore. No shortness of breath or chest pain. No fevers or chills. Currently weaning down FiO2. Objective - Vital Signs Vital signs: Vital Signs Temp 99.3 F 02/19/22 08:00 Pulse 90 02/19/22 11:58 Resp 29 H 02/19/22 11:00 BP 130/84 02/19/22 10:00 Pulse Ox 93 L 02/19/22 11:00 FiO2 8 02/18/22 01:00 Intake & Output 02/18/22 02/19/22 02/19/22 18:59 06:59 18:59 Intake Total 482.531 200 Output Total 3225 900 Balance -2742.469 -700 Weight 92.7 kg Intake: IV 290 200 0.9 NS 140 Piperacillin-Tazobactam 3 100 200 .375 gm In Sodium Chloride 0.9% 100 ml @ 25 mls/hr IVPB Q8H [facility] Rx#: [id number] Intake, IV Titration 192.531 Amount Heparin Sod,Pork in 0.45% 192.531 NaCl 25,000 unit In 0.45 % NaCl 1 250ml.bag @ 12 UNITS/KG/HR 9.798 mls/hr IV .Q24H [facility] Rx#: [id number] Output: Urine 3225 900 Other: Voiding Method Urinal Urinal # Voids 0 1 # Bowel Movements 1 - Exam Constitutional: No acute distress, conversant, pleasant Eyes:Anicteric sclerae, moist conjunctiva, no lid-lag, PERRLA, ENMT: Oropharynx clear, no erythema, exudates Neck: Supple, FROM, no masses, or JVD, No carotid bruits, No thyromegaly Lungs: Clear to auscultation, Clear to percussion, Normal respiratory effort, no accessory muscle use Cardiovascular: Heart regular in rate and rhythm, No murmurs, gallops, or rubs, No peripheral edema Abdominal: Soft, Nontender, no guarding, rebound or rigidity, Normoactive bowel sounds, No hepatomegaly, No splenomegaly, No palpable mass Skin: Normal temperature, tone, texture, turgor, no induration, No subcutaneous nodules, No rash, lesions, No ulcers Extremities: No digital cyanosis, No clubbing, Pedal pulses intact and symmetrical, Radial pulses intact and symmetrical, No calf tenderness Psychiatric: Alert and oriented to person, place and time, appropriate affect, intact judgement Neuro: Muscles Strength 5/5 in all 4 extremities, Sensation to light touch casa sly present throughout, Cranial nerves II-XII grossly intact, no focal sensory deficits - Labs CBC & Chem 7: 02/19/22 05:32 02/19/22 05:32 Labs: Abnormal Lab Results - Last 24 Hours (Table) 02/18/22 02/19/22 Range/Units 12:04 05:32 RBC 4.25 L (4.30-5.90) m/uL Neutrophils # 8.6 H (1.3-7.7) k/uL APTT 52.0 H (22.0-30.0) sec Microbiology - Last 24 Hours (Table) 02/16/22 12:25 Blood Culture - Preliminary Blood No Growth after 48 hours 02/16/22 12:40 Blood Culture - Preliminary Blood No Growth after 48 hours Assessment and Plan Plan: Unresponsiveness Toxic encephalopathy Cocaine abuse Advised to quit Aspiration pneumonia with cxr showing central bilateral edema vs. infiltrates Zosyn Bronchodilators. Still requiring 4L currently--better Aspiration precautions Acute exacerbation of systolic congestive heart failure Was diuresed earlier with IV Lasix, currently is on by mouth Lasix 40 mg by mouth twice a day Elevated troponin likely non-ST elevation [place] Cardio following He was treated with heparin Had heart catheterization on 02/18, was found to have minimal coronary artery disease Acute kidney injury with hyperkalemia He was given bicarb and calcium gluconate Resolved Avoid nephrotoxic meds DVT prophylaxis Already on heparin
[2022-02-19] MEDS: POTASSIUM CHLORIDE ER 20 MEQ TAB.ER PO SCH ×2 (13:50→14:55)
--- NOTE | 2022-02-19 14:02 | PN ---
PROGRESS NOTE This gentleman has nonischemic cardiomyopathy. Cardiac cath did not reveal any significant obstructive disease. I am suggesting IV Lasix 40 q.12 for 2 doses and then put him on 40 mg daily. We will give some potassium supplements 20 mEq x2. Vital signs stable in sinus rhythm. S1-S2 heard normally. Lungs are clear. Abdomen looks exam unchanged. Right radial site is clean and dry. MMODL / IJN: [id number] /
[2022-02-19] MEDS: ACETAMINOPHEN TAB 325 MG TAB PO PRN (17:23)
[2022-02-19] MEDS: ATORVASTATIN 10 MG TAB PO SCH (20:24)
[2022-02-20] MEDS: PIPERACILLIN-TAZOBACTAM 3.375 GM in SODIUM CHLORIDE 0.9% 100 ML IVPB SCH (03:09)
[2022-02-20] MEDS: PANTOPRAZOLE 40 MG TABLET PO SCH (06:44)
[2022-02-20 06:57] LABS: Basophils # (A) 0.1 k/uL (0-0.2); Basophils % (A) 1 %; Eosinophils # (A) 0.2 k/uL (0-0.7); Eosinophils % (A) 2 %; HCT 45.7 % (39.0-53.0); HGB 15.5 gm/dL (13.0-17.5); Lymphocytes # (A) 1.9 k/uL (1.0-4.8); Lymphocytes % (A) 16 %; MCH 31.6 pg (25.0-35.0); MCHC 33.8 g/dL (31.0-37.0); MCV 93.5 fL (80.0-100.0); Mean Platelet Volume 7.9; Monocytes # (A) 0.6 k/uL (0-1.0); Monocytes % (A) 5 %; Neutrophils # (A) 8.6 k/uL (1.3-7.7); Neutrophils % (A) 75 %; Platelet Count 246 k/uL (150-450); RBC 4.89 m/uL (4.30-5.90); RDW 12.9 % (11.5-15.5); WBC 11.4 k/uL (3.8-10.6)
[2022-02-20 07:11] LABS: African American GFR (CKD) >90 (>60 ml/min/1.73 sqM); Anion Gap 10 mmol/L; Blood Urea Nitrogen 22 mg/dL (9-20); Calcium 8.9 mg/dL (8.4-10.2); Carbon Dioxide 26 mmol/L (22-30); Chloride 105 mmol/L (98-107); Glucose 116 mg/dL (74-99); Non-African American GFR(CKD) >90 (>60 ml/min/1.73 sqM); Potassium 3.6 mmol/L (3.5-5.1); Sodium 141 mmol/L (137-145)
[2022-02-20] MEDS ORDERED: Potassium Replacement Protocol 1 EACH MISC MISCELLANE PRN (08:50)
[2022-02-20] MEDS: METOPROLOL TARTRATE 12.5 MG TAB PO SCH ×2 (08:51→20:45)
[2022-02-20] MEDS: ASPIRIN 81 MG PO SCH (08:51)
[2022-02-20] MEDS: AMOXIC-POT CLAV 875-125MG 1 EACH TAB PO SCH ×2 (08:53→20:45)
[2022-02-20] MEDS: POTASSIUM CHLORIDE ER 20 MEQ TAB.ER PO SCH ×2 (08:59→10:01)
[2022-02-20] MEDS: IPRATROPIUM-ALBUTEROL 3 ML NEB INHALATION SCH ×4 (09:01→18:59)
[2022-02-20] MEDS ORDERED: FUROSEMIDE 10 MG/ML 4 ML VIAL IV STA (09:56)
--- NOTE | 2022-02-20 11:18 | P.PN ---
Subjective Progress Note Date: 02/20/22 Principal diagnosis: Acute hypoxic respiratory failure 52-year-old male with previous history of drug abuse including cocaine, crack, had a relapse, and was found unresponsive at her friend's house this morning. Patient's sister at the bedside also stated that CPR was also performed, but it is unknown for how long, and the details. When the EMS arrived patient was given Narcan with good response, and patient Required 3 doses. He was brought into the emergency department and started on Narcan drip is 0.6 milligram per hour. Patient is currently on a nonrebreather mask, satting 94%. He had been vomiting. Chest x-ray showing increased opacities bilaterally greater thr oughout the left lung, there is suspicion for aspiration related pneumonia or pulmonary edema. Brain CT showed no acute intracranial hemorrhage. Lab work showed elevated white count of 15.5, hemoglobin of 17, potassium of 6.2, BUN of 20 creatinine 2.13, troponin of 0.191, proBNP of 236, serum alcohol was less than 10. Patient is awake and alert, he is hard of hearing, but he is oriented 3, answering questions appropriately. He admits to doing cocaine and crack last night for the first time in the last 5 months, he states he has been quite stressed at work, he works at a [employer] in [place], [place]. In addition he also smokes cigarettes and marijuana on a regular basis. He remains on Narcan infusion, he is awaiting a bed in the ICU Patient was reevaluated today on 02/17/2022, I saw this patient yesterday in the ER, and admitted the patient to the ICU with cocaine overdose, aspiration pneumonia, possible non-ST elevation myocardial infarction, and the patient had to be placed initially on BiPAP, transitioned to high flow nasal cannula presently on 8 L high flow with O2 sats of 93%, patient was placed on Narcan drip which was discontinued last night. Patient is sitting in bed, very comfortable, does not seem to be in any distress. His chest x-ray is showing improvement in his bilateral infiltrates however not completely resolved. Patient is hemodynamically stable, he was seen by cardiology and he was placed on heparin for elevated troponin. And apparently had an episode of chest discomfort and diaphoresis last night. His echocardiogram showed ejection fraction of 40-45%. Cardiology consultation is pending. Patient was placed on antibiotics in the form of Zosyn empirically for aspiration pneumonia On 02/18/2022 patient seen in the intensive care unit. he is awake and alert, oriented 3, he remains on supplemental oxygen, per high flow nasal cannula at 8 L satting 94%, does not appear to be in any acute distress, denies any chest pain, no coughing or wheezing, afebrile. Follow-up chest x-ray today showing internal progressive consolidation with diffuse bilateral infiltrates. Patient remains on Zosyn for empiric antibiotic coverage, pro-calcitonin level has been ordered and is pending, today's labs have been reviewed showing blood blood cell count of 11.8, hemoglobin of 12.9, electrolytes and renal profile were unremarkable. Patient remains on heparin infusion, aspirin, high-intensity Lipitor, he did receive a dose of IV Lasix per cardiology. And has been started on maintenance dose of Lasix 40 mg twice daily. Cardiology service is [facility], echocardiogram showed mildly impaired LV function with EF of 40-45%. Highest troponin was 0.469 with the fifth set of troponins, and patient is scheduled for heart catheterization today. On 02/19/2022 patient seen in follow-up. Patient had a heart catheterization yesterday on 12/19/2021 which showed minimal CAD with mild luminal irregularities minimal elevated left-sided filling pressures with LVEDP of 16. Aggressive risk modification was recommended, tobacco and cocaine cessation. FiO2 is currently down to 4 L, pulse ox is 93%, patient is working on his incentive spirometer, lung sounds are positive for coarse crackles at bilateral bases, no rhonchi or wheezing, low-grade temperature overnight with a temp of 99.3F. Patient remains on Zosyn for empiric antibiotic coverage, he was also started on maintenance dose Lasix 40 mg twice daily, patient is in -3.4 L net fluid balance over the last 24 hours. Chest x-ray today showing improvement in bilateral airspace disease and improved aeration within the lungs. Blood cultures have shown no growth On 02/20/2022 patient seen in follow-up in intensive care unit. Patient has been awaiting a bed on selective care unit for last few days. Has remained stable, his breathing is improving, he is currently down to 2 L of oxygen, and he will be trialed on room air for evaluation of home oxygen needs. Lung sounds reveal only a few scattered crackles at the bases, no rhonchi or wheezing, no complaints of chest discomfort, patient has been transitioned to oral Augmentin today, his had no fever or chills, remains on oral Lasix 40 mg twice daily, he remains on nebulized bronchodilators. No new chest x-ray, yesterday chest x-ray was showing improving bilateral infiltrates. Today's labs have been reviewed with blood cell count is 11.4, hemoglobin is 15.5, electrolytes are within normal limits, BUN is 22 creatinine 0.93. Objective - Vital Signs Vital signs: Vital Signs Temp 98.6 F 02/20/22 04:00 Pulse 89 02/20/22 09:00 Resp 19 02/20/22 09:00 BP 132/86 02/20/22 09:00 Pulse Ox 93 L 02/20/22 09:00 FiO2 8 02/18/22 01:00 Intake & Output 02/19/22 02/20/22 02/20/22 18:59 06:59 18:59 Intake Total 200 Output Total 650 1000 Balance -650 -800 Weight 84.5 kg Intake: Lipid 200 Piperacillin-Tazobactam 3 200 .375 gm In Sodium Chloride 0.9% 100 ml @ 25 mls/hr IVPB Q8H [facility] Rx#: [id number] Output: Urine 650 1000 Other: Voiding Method Urinal Urinal Urinal # Voids 1 2 # Bowel Movements 1 - Exam GENERAL EXAM: Alert, very pleasant, 52-year-old male, on room air with a pulse ox of 93% oriented 3, comfortable in no apparent distress. HEAD: Normocephalic/atraumatic. EYES: Normal reaction of pupils, equal size. Conjunctiva pink, sclera white. NOSE: Clear with pink turbinates. THROAT: No erythema or exudates. NECK: No masses, no JVD, no thyroid enlargement, no adenopathy. CHEST: No chest wall deformity. Symmetrical expansion. LUNGS: Equal air entry with diffuse crackles CVS: Regular rate and rhythm, normal S1 and S2, no gallops, no murmurs, no rubs ABDOMEN: Soft, nontender. No hepatosplenomegaly, normal bowel sounds, no guarding or rigidity. EXTREMITIES: No clubbing, no edema, no cyanosis, 2+ pulses and upper and lower extremities. MUSCULOSKELETAL: Muscle strength and tone normal. SPINE: No scoliosis or deformity SKIN: No rashes CENTRAL NERVOUS SYSTEM: Alert and oriented -3. No focal deficits, tone is normal in all 4 extremities. PSYCHIATRIC: Alert and oriented -3. Appropriate affect. Intact judgment and insight. - Labs CBC & Chem 7: 02/20/22 06:37 02/20/22 06:37 Labs: Abnormal Lab Results - Last 24 Hours (Table) 02/20/22 02/20/22 Range/Units 06:37 06:37 WBC 11.4 H (3.8-10.6) k/uL Neutrophils # 8.6 H (1.3-7.7) k/uL BUN 22 H (9-20) mg/dL Glucose 116 H (74-99) mg/dL Microbiology - Last 24 Hours (Table) 02/16/22 12:25 Blood Culture - Preliminary Blood No Growth after 72 hours 02/16/22 12:40 Blood Culture - Preliminary Blood No Growth after 72 hours Assessment and Plan Plan: Assessment: #1. Acute hypoxic respiratory failure related to a suspected aspiration. There may be a component of pulmonary edema #2. Probable non-ST elevated myocardial infarction #3. Minimal CAD as evident from the heart catheterization on 02/18/2022 #4. Drug overdose, patient admits to taking cocaine and crack, responded to Narcan, currently remains on Narcan infusion #5. Acute kidney injury, resolved #6. Acute hyperkalemia related to acute kidney injury, serum potassium of 6.2, treated with calcium gluconate, sodium bicarb, repeat BMP is pending #7. Troponin leak, rule out possibility of non-ST elevated [place] #8. History of drug abuse including cocaine, crack, marijuana #9. Tobacco dependence Plan: We'll obtain home oxygen assessment Patient has been tolerating ambulation around the unit without any difficulty 6 chest pain no worsening dyspnea We will transition Zosyn to oral Augmentin for 5 more days Continues on oral Lasix No acute events overnight Possible discharge home today Outpatient follow-up with Dr. Hargrove in the office in one week I have personally seen and examined the patient, performed the documentation and the assessment and plan as written. Number of minutes spent on the visit: [15] Time with Patient: Less than 30
[2022-02-20] MEDS: FUROSEMIDE 40 MG TAB PO SCH (15:48)
--- NOTE | 2022-02-20 16:46 | P.PN ---
Subjective Progress Note Date: 02/20/22 Principal diagnosis: PNA Patient was seen and examined. No acute events overnight. Off oxygen. Complains of mild cough. He denies any chest pain or shortness of breath. Family at bedside. Objective - Vital Signs Vital signs: Vital Signs Temp 98.9 F 02/20/22 14:00 Pulse 110 H 02/20/22 16:00 Resp 34 H 02/20/22 16:00 BP 118/82 02/20/22 14:00 Pulse Ox 93 L 02/20/22 14:00 FiO2 8 02/18/22 01:00 Intake & Output 02/19/22 02/20/22 02/20/22 18:59 06:59 18:59 Intake Total 200 Output Total 650 1000 Balance -650 -800 Weight 84.5 kg Intake: Lipid 200 Piperacillin-Tazobactam 3 200 .375 gm In Sodium Chloride 0.9% 100 ml @ 25 mls/hr IVPB Q8H [facility] Rx#: [id number] Output: Urine 650 1000 Other: Voiding Method Urinal Urinal Toilet Urinal # Voids 1 2 # Bowel Movements 1 - Exam Constitutional: No acute distress, conversant, pleasant Eyes:Anicteric sclerae, moist conjunctiva, no lid-lag ENMT: Oropharynx clear Neck: Supple, FROM, no masses, or JVD, No carotid bruits, No thyromegaly Lungs: Clear to auscultation, Clear to percussion, Normal respiratory effort, no accessory muscle use Cardiovascular: Heart regular in rate and rhythm, No murmurs, gallops, or rubs, No peripheral edema Abdominal: Soft, Nontender, no guarding, rebound or rigidity, Normoactive bowel sounds, No hepatomegaly, No splenomegaly, No palpable mass Skin: Normal temperature, tone, texture, turgor, no induration, No subcutaneous nodules, No rash, lesions, No ulcers Extremities: No digital cyanosis, No clubbing, Pedal pulses intact and symmetrical, Radial pulses intact and symmetrical, No calf tenderness Psychiatric: Alert and oriented to person, place and time, appropriate affect, intact judgement - Labs CBC & Chem 7: 02/20/22 06:37 02/20/22 06:37 Labs: Abnormal Lab Results - Last 24 Hours (Table) 02/20/22 02/20/22 Range/Units 06:37 06:37 WBC 11.4 H (3.8-10.6) k/uL Neutrophils # 8.6 H (1.3-7.7) k/uL BUN 22 H (9-20) mg/dL Glucose 116 H (74-99) mg/dL Microbiology - Last 24 Hours (Table) 02/16/22 12:40 Blood Culture - Preliminary Blood No Growth after 96 hours 02/16/22 12:25 Blood Culture - Preliminary Blood No Growth after 96 hours Assessment and Plan Assessment: Unresponsiveness Toxic encephalopathy Cocaine abuse Advised to quit Aspiration pneumonia with cxr showing central bilateral edema vs. infiltrates Acute hypoxic respiratory failure Zosyn switched to Augmentin. Bronchodilators. Home oxygen evaluation to be done tomorrow. Aspiration precautions. Pulmonology on board. Acute exacerbation of systolic congestive heart failure Was diuresed earlier with IV Lasix, currently is on by mouth Lasix 40 mg by mouth twice a day. Elevated troponin likely non-ST elevation [place] Cardio consulted. He was treated with heparin. Had heart catheterization on 02/18, was found to have minimal coronary artery disease. Acute kidney injury with hyperkalemia He was given bicarb and calcium gluconate. Resolved. Avoid nephrotoxic meds. DVT prophylaxis Already on heparin. Anticipate DC home tomorrow.
--- NOTE | 2022-02-20 18:35 | PN ---
PROGRESS NOTE The patient is resting comfortably today. He is in a sinus rhythm. Oxygen saturation is about 88-92 on room air. We will place him on 2 L of oxygen. I will give him one dose of Lasix IV today and then keep him on 40 mg p.o. b.i.d. The patient can be moved to the medical floor today and also eventual discharged in the next 36-48 hours. Vitals are stable, no JVD. S1-S2 heard normally, short systolic murmur noted. Lungs reveal fine rales over both bases. Abdomen is soft, nontender. Lower extremities reveal diminished pulses. Central nervous system grossly no focal deficits. MMODL / IJN: [id number] /
[2022-02-20] MEDS: HEPARIN SODIUM,PORCINE/PF 5,000 UNIT/0.5 ML SYRINGE SQ SCH (20:45)
[2022-02-20] MEDS: ATORVASTATIN 10 MG TAB PO SCH (20:45)
[2022-02-21] MEDS: IPRATROPIUM-ALBUTEROL 3 ML NEB INHALATION SCH ×2 (07:49→11:14)
[2022-02-21 07:55] VITALS: BP 121/82; RESP 18; TEMP 97.9
[2022-02-21] MEDS: PANTOPRAZOLE 40 MG TABLET PO SCH (08:06)
[2022-02-21] MEDS: ASPIRIN 81 MG PO SCH (08:06)
[2022-02-21] MEDS: HEPARIN SODIUM,PORCINE/PF 5,000 UNIT/0.5 ML SYRINGE SQ SCH (08:06)
[2022-02-21] MEDS: METOPROLOL TARTRATE 12.5 MG TAB PO SCH (08:06)
[2022-02-21] MEDS: FUROSEMIDE 40 MG TAB PO SCH (08:06)
[2022-02-21] MEDS ORDERED: METOPROLOL TARTRATE 25 MG TAB PO SCH (09:00)
[2022-02-21] MEDS ORDERED: lisinopriL 5 MG TAB PO SCH (09:00)
[2022-02-21] MEDS ORDERED: FUROSEMIDE 20 MG TAB PO SCH ×2 (09:00→16:00)
[2022-02-21] MEDS: AMOXIC-POT CLAV 875-125MG 1 EACH TAB PO SCH (10:02)
--- NOTE | 2022-02-21 10:29 | P.PN ---
Subjective Patient is a pleasant 52-year-old male with history of tobacco abuse, alcohol use, cocaine/crack use, family history of coronary artery disease and has never followed with who presents secondary to altered mental status. Patient recalls drinking and having somewhat of a worse day and therefore had a relapse use crack cocaine. He was found to have acute kidney injury with creatinine up to 2.13 and potassium 6.2 as well as mildly elevated AST 58, ALT 59 and elevated white blood cell count 15.5. Pro-calcitonin was elevated at 8.1. Troponins 0.19, 0.31, 0.44, 0.45, 0.46. He received IV fluids and kidney function improved. Echocardiogram revealed decreased EF 40-45% and otherwise no significant valvular disease. He underwent cardiac catheterization with Dr. Kang on 02/18/2022 which revealed Minimal CAD as described above with mild luminal irregularities at worst 30% stenosis of the PDA, Minimal elevated left sided filling pressures. 02/21/2022 Patient seen and examined at bedside, no acute distress. Denies any chest pain shortness of breath. No complaints. Overall the patient is doing well. His vital signs are stable. Labs from yesterday revealed sodium 141, potassium 3.6, BUN 22, serum creatinine 0.9 PHYSICAL EXAMINATION Vital signs reviewed. CONSTITUTIONAL: No apparent distress. HEENT: Neck SUpple No JVD. CHEST EXAMINATION: Lungs are clear to auscultation. No chest wall tenderness is noted on palpation or with deep breathing. HEART EXAMINATION: Regular rate and rhythm. S1, S2 heard. No murmurs, gallops or rub. ABDOMEN: Soft, nontender. Positive bowel sounds. EXTREMITIES: 2+ peripheral pulses, no lower extremity edema and no calf tenderness. NEUROLOGIC EXAMINATION: Patient is awake, alert and oriented x3. ASSESSMENT Elevated troponin, acute coronary syndrome has been ruled out Non-ischemic Cardiomyopathy EF 40-45% Mild non-obstructive coronary artery disease Crack cocaine use Altered mental status improved Family history of coronary artery disease Tobacco, marijuana, alcohol use GERD Medical noncompliance PLAN Continue aspirin and add atorvastatin 40mg daily Decrease Lasix to 20mg BID Lisinopril 5mg daily Increase metoprolol tartrate 25mg BID Smoking and cocaine cessation discussed with patient and highly recommended From a cardiology perspective, patient is stable. Ok to discharge when cleared by primary and other consultants. Follow up outpatient with Dr. Kang in 1 week. Nurse practitioner note has been reviewed by physician. Signing provider agrees with the documented findings, assessment, and plan of care. Objective - Vital Signs Vital signs: Vital Signs Temp 97.9 F 02/21/22 07:54 Pulse 88 02/21/22 08:01 Resp 18 02/21/22 07:54 BP 121/82 02/21/22 07:54 Pulse Ox 93 L 02/21/22 01:42 FiO2 8 02/18/22 01:00 Intake & Output 02/20/22 02/21/22 02/21/22 18:59 06:59 18:59 Intake Total 120 Output Total 375 Balance -255 Weight 84.958 kg Intake: Oral 120 Output: Urine 375 Other: Voiding Method Toilet Toilet Urinal Urinal # Voids 1 1 - Labs CBC & Chem 7: 02/20/22 06:37 02/20/22 06:37 Labs: Microbiology - Last 24 Hours (Table) 02/16/22 12:40 Blood Culture - Preliminary Blood No Growth after 96 hours 02/16/22 12:25 Blood Culture - Preliminary Blood No Growth after 96 hours
--- NOTE | 2022-02-21 10:57 | P.DS ---
Providers Date of admission: 02/16/22 11:44 Expected date of discharge: 02/21/22 Attending physician: Abdias Correa MD Consults: 02/16/22 11:40 Consult Physician Stat Consulting Provider: Fermin Lynn Consult Reason/Comments: critical care Do you want consulting provider notified?: Yes Consult Physician Urgent Consulting Provider: Agusto Kang Consult Reason/Comments: cardiac eval and tx, elevated trop Do you want consulting provider notified?: Already Contacted Primary care physician: Stated None Hospital Course: 52-year-old male with previous history of drug abuse including cocaine, but otherwise no past medical history, doesn't usually go to doctors. He presented to the ER after he was found unresponsive at a friend's house this morning. Patient's sister at the bedside also stated that CPR was also performed, but it is unknown for how long, and the details. When the EMS arrived patient was given Narcan with good response, and patient Required 3 doses. He was brought into the emergency department and started on Narcan drip. Patient is currently awake and answering questions appropriately but having problems with his hearing which is new according to sister. He told me that the last time he used cocaine was 5 months ago and that he doesn't use it regularly. He threw up multiple times in the ER. Work up in the ER with chest x-ray showed increased opacities bilaterally greater throughout the left lung, there is suspicion for aspiration related pneumonia or pulmonary edema. Brain CT showed no acute intracranial hemorrhage. Lab work showed elevated white count of 15.5, hemoglobin of 17, potassium of 6.2, BUN of 20 creatinine 2.13, troponin of 0.191, repeat 0.312, proBNP of 236, serum alcohol was less than 10. Urine drug screen positive for cocaine and marijuana. He is currently on narcan drip and admitted to ICU for further monitoring and management. Head CT was negative. His mentation did improve considerably during his h ospitalization. He was baseline at the time of discharge. His altered mentation thought to be related to toxic metabolic encephalopathy. With regard to his elevated troponins, cardiology was consulted. Echocardiogram showed EF of 40-45% with global hypokinesis. Patient underwent cardiac catheterization which showed minimal CAD with mild luminal irregularities at worst 30% stenosis of the PDA. Cardiology recommended continuing aspirin, Lipitor, Lasix, lisinopril and metoprolol. Patient was started on Zosyn for thoughts of aspiration pneumonia. He was started on supplemental O2 to maintain O2 saturation greater than 92%. He was started on DuoNeb scheduled and as needed for shortness of breath and wheezing. His respiratory status considerably improved during his hospitalization. He was able to be weaned off oxygen and was discharged on room air. Zosyn was transitioned to Augmentin for 10 doses. Patient was seen and examined on 02/21/2022. He reported considerable improvement in his breathing with a mild cough. He denied any chest pain, shortness breath or palpitations. Patient was comfortable being discharged home. He was advised to follow-up with cardiology within 1 week of discharge. He was advised follow-up with pulmonology within 1 week of discharge. He was advised follow-up with his PCP within 1-2 days of discharge. Patient verbalized understanding of the plan. General: [non toxic], [no distress], [appears at stated age] Derm: [warm], [dry] Head: [atraumatic], [normocephalic], [symmetric] Eyes: [EOMI], [no lid lag], [anicteric sclera] Mouth: [no lip lesion], [mucus membranes moist] Cardiovascular: [S1S2 reg], [no murmur], [positive DP pulse bilateral] Lungs: [CTA bilateral], [no rhonchi, no rales] , [no accessory muscle use] Ext: [no gross muscle atrophy], [no edema], [no contractures] Neuro: [no focal neuro deficits] Psych: [Alert], [oriented], [appropriate affect] Discharge diagnosis: Toxic metabolic encephalopathy Acute hypoxic respiratory failure Aspiration pneumonia Acute exacerbation of systolic CHF Non-ST elevation SC Cocaine abuse Tobacco abuse Acute kidney injury, resolved Hyperkalemia, resolved This complex discharge took about 45 minutes to complete. Pertinent Studies: Echocardiogram, chest x-ray, brain CT Procedures: Cardiac catheterization Patient Condition at Discharge: Stable Plan - Discharge Summary Discharge Rx Participant: Yes New Discharge Prescriptions: New Aspirin 81 mg PO DAILY #30 tab Atorvastatin [Lipitor] 40 mg PO HS #30 tab Metoprolol Tartrate [Lopressor] 25 mg PO BID #60 tab Albuterol Inhaler [Ventolin Hfa Inhaler] 1 - 2 puff INHALATION RT-Q6H PRN #1 PRN Reason: Shortness Of Breath Amoxic-Pot Clav 875-125Mg [Augmentin 875-125] 1 each PO Q12HR #10 tab Furosemide [Lasix] 20 mg PO BID@0900,1600 #60 tab lisinopriL [Zestril] 5 mg PO DAILY #30 tab Discharge Medication List Albuterol Inhaler [Ventolin Hfa Inhaler] 1 - 2 puff INHALATION RT-Q6H PRN #1 02/21/22 [Rx] Amoxic-Pot Clav 875-125Mg [Augmentin 875-125] 1 each PO Q12HR #10 tab 02/21/22 [Rx] Aspirin 81 mg PO DAILY #30 tab 02/21/22 [Rx] Atorvastatin [Lipitor] 40 mg PO HS #30 tab 02/21/22 [Rx] Furosemide [Lasix] 20 mg PO BID@0900,1600 #60 tab 02/21/22 [Rx] Metoprolol Tartrate [Lopressor] 25 mg PO BID #60 tab 02/21/22 [Rx] lisinopriL [Zestril] 5 mg PO DAILY #30 tab 02/21/22 [Rx] Follow up Appointment(s)/Referral(s): Agusto Kang DO [STAFF PHYSICIAN] - 1 Week Wilfredo Tabor DO [Doctor of Osteopathic Medicine] - 1 Week None,Stated [Primary Care Provider] - 1-2 days Activity/Diet/Wound Care/Special Instructions: Diet: Cardiac Follow-up with your PCP within 1-2 days of discharge. Follow-up with cardiology within 1 week of discharge. Follow-up with pulmonology within 1 week of discharge. Please refrain from illicit drug use. Take all medications as advised. Come back to the ED for worsening chest pain, shortness of breath, palpitations or lightheadedness. Discharge Disposition: HOME SELF-CARE
[2022-02-21 11:16] VITALS: PULSE 90
--- NOTE | 2022-02-21 12:03 | P.PN ---
Subjective Progress Note Date: 02/21/22 Principal diagnosis: Acute hypoxic respiratory failure secondary to drug overdose 52-year-old male with previous history of drug abuse including cocaine, crack, had a relapse, and was found unresponsive at her friend's house this morning. Patient's sister at the bedside also stated that CPR was also performed, but it is unknown for how long, and the details. When the EMS arrived patient was given Narcan with good response, and patient Required 3 doses. He was brought into the emergency department and started on Narcan drip is 0.6 milligram per hour. Patient is currently on a nonrebreather mask, satting 94%. He had been vomiting. Chest x-ray showing increased opacities bilaterally greater throughout the left lung, there is suspicion for aspiration related pneumonia or pulmonary edema. Brain CT showed no acute intracranial hemorrhage. Lab work showed elevated white count of 15.5, hemoglobin of 17, potassium of 6.2, BUN of 20 creatinine 2.13, troponin of 0.191, proBNP of 236, serum alcohol was less than 10. Patient is awake and alert, he is hard of hearing, but he is oriented 3, answering questions appropriately. He admits to doing cocaine and crack las t night for the first time in the last 5 months, he states he has been quite stressed at work, he works at a [employer] in [place], [place]. In addition he also smokes cigarettes and marijuana on a regular basis. He remains on Narcan infusion, he is awaiting a bed in the ICU Patient was reevaluated today on 02/17/2022, I saw this patient yesterday in the ER, and admitted the patient to the ICU with cocaine overdose, aspiration pneumonia, possible non-ST elevation myocardial infarction, and the patient had to be placed initially on BiPAP, transitioned to high flow nasal cannula presently on 8 L high flow with O2 sats of 93%, patient was placed on Narcan drip which was discontinued last night. Patient is sitting in bed, very comfortable, does not seem to be in any distress. His chest x-ray is showing improvement in his bilateral infiltrates however not completely resolved. Patient is hemodynamically stable, he was seen by cardiology and he was placed on heparin for elevated troponin. And apparently had an episode of chest discomfort and diaphoresis last night. His echocardiogram showed ejection fraction of 40-45%. Cardiology consultation is pending. Patient was placed on antibiotics in the form of Zosyn empirically for aspiration pneumonia On 02/18/2022 patient seen in the intensive care unit. he is awake and alert, oriented 3, he remains on supplemental oxygen, per high flow nasal cannula at 8 L satting 94%, does not appear to be in any acute distress, denies any chest pain, no coughing or wheezing, afebrile. Follow-up chest x-ray today showing internal progressive consolidation with diffuse bilateral infiltrates. Patient remains on Zosyn for empiric antibiotic coverage, pro-calcitonin level has been ordered and is pending, today's labs have been reviewed showing blood blood cell count of 11.8, hemoglobin of 12.9, electrolytes and renal profile were unre markable. Patient remains on heparin infusion, aspirin, high-intensity Lipitor, he did receive a dose of IV Lasix per cardiology. And has been started on maintenance dose of Lasix 40 mg twice daily. Cardiology service is following, echocardiogram showed mildly impaired LV function with EF of 40-45%. Highest troponin was 0.469 with the fifth set of troponins, and patient is scheduled for heart catheterization today. On 02/19/2022 patient seen in follow-up. Patient had a heart catheterization yesterday on 12/19/2021 which showed minimal CAD with mild luminal irregularities minimal elevated left-sided filling pressures with LVEDP of 16. Aggressive risk modification was recommended, tobacco and cocaine cessation. FiO2 is currently down to 4 L, pulse ox is 93%, patient is working on his incentive spirometer, lung sounds are positive for coarse crackles at bilateral bases, no rhonchi or wheezing, low-grade temperature overnight with a temp of 99.3F. Patient remains on Zosyn for empiric antibiotic coverage, he was also started on maintenance dose Lasix 40 mg twice daily, patient is in -3.4 L net fluid balance over the last 24 hours. Chest x-ray today showing improvement in bilateral airspace disease and improved aeration within the lungs. Blood cultures have shown no growth On 02/20/2022 patient seen in follow-up in intensive care unit. Patient has been awaiting a bed on selective care unit for last few days. Has remained stable, his breathing is improving, he is currently down to 2 L of oxygen, and he will be trialed on room air for evaluation of home oxygen needs. Lung sounds reveal only a few scattered crackles at the bases, no rhonchi or wheezing, no complaints of chest discomfort, patient has been transitioned to oral Augmentin today, his had no fever or chills, remains on oral Lasix 40 mg twice daily, he remains on nebulized bronchodilators. No new chest x-ray, yesterday chest x-ray was showing improving bilateral infiltrates. Today's labs have been reviewed with blood cell count is 11.4, hemoglobin is 15.5, electrolytes are within normal limits, BUN is 22 creatinine 0.93. The patient is seen today 02/21/2022 in follow-up on the regular medical floor. He is currently resting comfortably in bed. Awake and alert in no acute distress. He is maintaining good O2 saturations in the 90s on room air. Afebrile. Hemodynamically stable. Blood cultures reveal no growth. No new labs today. He is continued on DuoNeb inhalations, Augmentin. Heparin for DVT prophylaxis. Objective - Vital Signs Vital signs: Vital Signs Temp 97.9 F 02/21/22 07:54 Pulse 90 02/21/22 11:26 Resp 18 02/21/22 08:06 BP 121/82 02/21/22 07:54 Pulse Ox 93 L 02/21/22 01:42 FiO2 8 02/18/22 01:00 Intake & Output 02/20/22 02/21/22 02/21/22 18:59 06:59 18:59 Intake Total 120 Output Total 375 Balance -255 Weight 84.958 kg Intake: Oral 120 Output: Urine 375 Other: Voiding Method Toilet Toilet Urinal Urinal # Voids 1 1 - Exam GENERAL EXAM: Alert, active, pleasant 52-year-old male patient, on room air, comfortable in no apparent distress. HEAD: Normocephalic. EYES: Normal reaction of pupils, equal size. NOSE: Clear with pink turbinates. THROAT: No erythema or exudates. NECK: No masses, no JVD. CHEST: No chest wall deformity. LUNGS: Equal air entry with no crackles, wheeze, rhonchi or dullness. CVS: S1 and S2 normal with no audible murmur, regular rhythm. ABDOMEN: No hepatosplenomegaly, normal bowel sounds, no guarding or rigidity. SPINE: No scoliosis or deformity SKIN: No rashes CENTRAL NERVOUS SYSTEM: No focal deficits, tone is normal in all 4 extremities. EXTREMITIES: There is no peripheral edema. No clubbing, no cyanosis. Peripheral pulses are intact. - Labs CBC & Chem 7: 02/20/22 06:37 02/20/22 06:37 Labs: Microbiology - Last 24 Hours (Table) 02/16/22 12:40 Blood Culture - Preliminary Blood No Growth after 96 hours 02/16/22 12:25 Blood Culture - Preliminary Blood No Growth after 96 hours Assessment and Plan Assessment: 1 Acute hypoxic respiratory failure related to a suspected aspiration. There may be a component of pulmonary edema 2 Probable non-ST elevated myocardial infarction 3 Minimal CAD as evident from the heart catheterization on 02/18/2022 4 Drug overdose, patient admits to taking cocaine and crack, responded to Narcan, currently remains on Narcan infusion 5 Acute kidney injury, resolved 6 Acute hyperkalemia related to acute kidney injury, serum potassium of 6.2, treated with calcium gluconate, sodium bicarb, repeat BMP is pending 7 Troponin leak, rule out possibility of non-ST elevated [place] 8 History of drug abuse including cocaine, crack, marijuana 9 Tobacco dependence Plan: The patient was seen and evaluated Stable from the pulmonary and critical care standpoint Cleared for discharge Complete course of Augmentin Educated regarding the importance of drug, smoking cessation Follow-up in the office in 1 week I have personally seen and examined the patient, performed the documentation and the assessment and plan as written. Number of minutes spent on the visit: 10.
[2022-02-21] MEDS ORDERED: ATORVASTATIN 40 MG TAB PO SCH (21:00)
== END 2022-02-21 12:58 | disposition home or self-care (01) | DRG 917 ==
LOC: EC 09:58 → 2SICU 11:44 → 4SSUR 02-20 19:00
PROVIDERS: ADMIT Internal Medicine; ATTEND Internal Medicine
PROC: B2111ZZ Fluoroscopy of Multiple Coronary Arteries using Low Osmolar Contrast (ICD-10-PCS; 2022-02-18)
PROC: B2151ZZ Fluoroscopy of Left Heart using Low Osmolar Contrast (ICD-10-PCS; 2022-02-18)
PROC: 4A023N7 Measurement of Cardiac Sampling and Pressure, Left Heart, Percutaneous Approach (ICD-10-PCS; principal; 2022-02-18 11:25)
DX: T40.5X1A Poisoning by cocaine, accidental (unintentional), initial encounter (principal); G92.8 Other toxic encephalopathy; I21.4 Non-ST elevation (NSTEMI) myocardial infarction; J96.01 Acute respiratory failure with hypoxia; I50.23 Acute on chronic systolic (congestive) heart failure; J69.0 Pneumonitis due to inhalation of food and vomit; N17.9 Acute kidney failure, unspecified; I42.8 Other cardiomyopathies; I25.10 Atherosclerotic heart disease of native coronary artery without angina pectoris; K21.9 Gastro-esophageal reflux disease without esophagitis; H91.90 Unspecified hearing loss, unspecified ear; E87.5 Hyperkalemia; F17.210 Nicotine dependence, cigarettes, uncomplicated; F14.10 Cocaine abuse, uncomplicated; Z79.899 Other long term (current) drug therapy; Z91.19 Patient's noncompliance with other medical treatment and regimen; Z82.49 Family history of ischemic heart disease and other diseases of the circulatory system
CPT/HCPCS: 36415; 70450; 71045; 71046; 80048; 80053; 80061; 80306; 80320; 81001; 83735; 83880; 84145; 84484; 85025; 85027; 85610; 85730; 87040; 93005; 93306; 93458; 94640; 96361; 96374; 96375; 99291